=== PATIENT | female | born 1975 | race Caucasian/White ===

== ENCOUNTER 2018-03-18 00:09 | Emergency (ER) | payer MEDICAID ==
[~2018-03-18] VITALS: Ht 157.5 cm; Wt 60.0 kg
[~2018-03-18 00:09] MED LIST: ALBU8.5H8 IH; FOLI1TAB16 PO; HYDR-569 PO; PENT400T12 PO; PROP10TA10 PO; SPIR25TA PO; THI100T PO
[2018-03-18] MEDS ORDERED: bacitracin 15gm ointment TP ONE (02:00)
[2018-03-18] MEDS ORDERED: LIDOcaine 1.5% w/epinephrine 1:200,000 5ml ampul IJ ONE (02:00)
[2018-03-18 02:16] VITALS: BP 102/74
[2018-03-18] MEDS ORDERED: TRAM50TA2 PO (03:04)
== END 2018-03-18 03:19 | disposition home or self-care (01) ==
LOC: ER 00:09
DX: S01.01XA Laceration without foreign body of scalp, initial encounter (principal); F12.90 Cannabis use, unspecified, uncomplicated; F15.90 Other stimulant use, unspecified, uncomplicated; Z90.49 Acquired absence of other specified parts of digestive tract; Z88.6 Allergy status to analgesic agent; Z79.899 Other long term (current) drug therapy; W01.198A Fall on same level from slipping, tripping and stumbling with subsequent striking against other object, initial encounter; Y93.89 Activity, other specified; Y92.89 Other specified places as the place of occurrence of the external cause; Y99.8 Other external cause status
CPT/HCPCS: 12001; 70450; 99284; A6449; J3490

== ENCOUNTER 2018-06-18 21:23 | Emergency (ER) | payer MEDICAID ==
[~2018-06-18] VITALS: Ht 157.5 cm; Wt 67.0 kg
[2018-06-18] MEDS ORDERED: PROP20TA6 PO (21:56)
[2018-06-18] MEDS ORDERED: propranolol 10mg tablet PO STA (21:57)
[2018-06-18 22:25] VITALS: BP 122/85
== END 2018-06-18 22:26 | disposition home or self-care (01) ==
LOC: ER 21:23
DX: F41.9 Anxiety disorder, unspecified (principal); F32.9 Major depressive disorder, single episode, unspecified; Z86.19 Personal history of other infectious and parasitic diseases; Z90.49 Acquired absence of other specified parts of digestive tract; Z98.890 Other specified postprocedural states; F12.90 Cannabis use, unspecified, uncomplicated; F15.90 Other stimulant use, unspecified, uncomplicated; Z88.6 Allergy status to analgesic agent; Z88.8 Allergy status to other drugs, medicaments and biological substances; Z79.899 Other long term (current) drug therapy
CPT/HCPCS: 99284

== ENCOUNTER 2018-12-15 14:55 | Emergency (ER) | payer MEDICAID ==
[~2018-12-15] VITALS: Ht 157.5 cm; Wt 72.7 kg
[~2018-12-15 14:55] MED LIST changes: +HYDR-4383 PO; -HYDR-569 PO; +PROP20TA6 PO
[2018-12-15 15:03] VITALS: BP 123/88
[2018-12-15] MEDS ORDERED: PRED20TA PO (21:39)
== END 2018-12-15 15:29 | disposition left against medical advice (07) ==
LOC: ER 14:56
DX: M79.642 Pain in left hand (principal); M79.641 Pain in right hand; M54.9 Dorsalgia, unspecified; M79.605 Pain in left leg; M79.604 Pain in right leg; Z53.21 Procedure and treatment not carried out due to patient leaving prior to being seen by health care provider; Y08.89XA Assault by other specified means, initial encounter; Y93.89 Activity, other specified; Y92.89 Other specified places as the place of occurrence of the external cause; Y99.8 Other external cause status
CPT/HCPCS: 73130

== ENCOUNTER 2018-12-23 17:10 | Inpatient (IN) | payer MEDICAID ==
[~2018-12-23] VITALS: Ht 157.5 cm; Wt 74.4 kg
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
[2018-12-23 23:20] VITALS: BP 95/53
[2018-12-24] MEDS ORDERED: acetaminophen 325mg tablet PO PRN (00:05)
[2018-12-24] MEDS ORDERED: mag hydrox/Alum hydrox/simeth 30ml oral suspension PO PRN (00:15)
[2018-12-24] MEDS ORDERED: magnesium hydroxide 30ml (MOM) UD suspension PO PRN (00:15)
[2018-12-24 08:00] VITALS: BP 94/42
[2018-12-24 08:58] LABS: CHOL/HDL RATIO 2.6 (0.00-4.99); CHOLESTEROL 125 MG/DL (0-200); HDL CHOLESTEROL 48 MG/DL (35-60); LDL CHOLESTEROL 71 MG/DL (50-100); TRIGLYCERIDES 43 MG/DL (20-135)
[2018-12-24 09:03] LABS: HEMOGLOBIN A1C 5.3 % (4.5-6.2)
[2018-12-24] MEDS ORDERED: LORazepam 2 mg/ml vial IV PRN (09:50)
[2018-12-24] MEDS ORDERED: tuberculin, purif. prot. deriv. 5 units/0.1ml ID ONE (10:00)
[2018-12-24] MEDS: multivitamins, therapeutics tablet PO SCH (11:00)
[2018-12-24] MEDS: folic acid 1mg tablet PO SCH (11:00)
[2018-12-24] MEDS: thiamine 100mg tablet PO SCH (11:00)
[2018-12-24 11:13] LABS: BASOPHILS % (AUTO) 0.6 % (0-1); EOSINOPHILS # (AUTO) 0.1 X10'3 (0-0.9); EOSINOPHILS % (AUTO) 3.1 % (0-6); HEMATOCRIT 29.1 % (35.0-45.0); HEMOGLOBIN 8.8 g/dl (12.0-16.0); LYMPHOCYTES # (AUTO) 1.1 X10'3 (1.1-4.8); LYMPHOCYTES % (AUTO) 34.7 % (21-51); MEAN CORPUSCULAR HEMOGLOBIN 20.4 PG (27.0-31.0); MEAN CORPUSCULAR HGB CONC 30.4 g/dL (33.0-36.5); MEAN PLATELET VOLUME 8.6 FL (7.4-10.4); MONOCYTES # (AUTO) 0.3 X10'3 (0-0.9); NEUTROPHILS # (AUTO) 1.6 X10'3 (1.8-7.7); NEUTROPHILS % (AUTO) 51.6 % (42-75); PLATELET COUNT 214 X10'3 (140-440); RED BLOOD COUNT 4.35 X10'6 (4.20-5.60); RED CELL DISTRIBUTION WIDTH 20.9 % (11.5-14.5); WHITE BLOOD COUNT 3.1 X10'3 (4.5-11.0)
--- NOTE | 2018-12-24 11:20 | NUR ---
METHADONE DOSE VERIFICATION The patient attends [facility]. Methadone dose was verified today as 140mg qd. Her last dose prior to admission was 12/22/18 at [address] [facility] Goldberg was made aware and new order received and carried out.
[2018-12-24 12:17] LABS: ALANINE AMINOTRANSFERASE 39 U/L (12-78); ALBUMIN 2.8 G/DL (3.4-5.0); ALBUMIN/GLOBULIN RATIO 0.7 (1.1-1.5); ALKALINE PHOSPHATASE 238 IU/L (46-116); ANION GAP 7 (8-16); ASPARTATE AMINO TRANSFERASE 42 U/L (10-37); BILIRUBIN,TOTAL 0.2 MG/DL (0.1-1.0); BLOOD UREA NITROGEN 13 MG/DL (7-18); BUN/CREATININE RATIO 15.1 (6.6-38.0); CALCIUM 8.6 MG/DL (8.5-10.1); CHLORIDE 107 MMOL/L (99-107); CREATININE 0.86 MG/DL (0.40-0.90); GLUCOSE 95 MG/DL (70-104); POTASSIUM 4.4 MMOL/L (3.5-5.1); SODIUM 141 MMOL/L (135-145); TOTAL CARBON DIOXIDE 27.4 MMOL/L (24-32); TOTAL PROTEIN 6.9 G/DL (6.4-8.2); eGFR 72 ML/MIN
[2018-12-24 12:26] LABS: PLATELET ESTIMATE NORMAL
[2018-12-24 12:27] LABS: ANISOCYTOSIS 3+; HYPOCHROMASIA 2+; MICROCYTOSIS 2+; POLYCHROMASIA 2+; STOMATOCYTES 1+; TEAR DROP CELLS 1+
[2018-12-24 12:28] LABS: ETHANOL < 0.010 GM/DL (0.0-0.010)
[2018-12-24] MEDS ORDERED: METH5TAB2 PO (12:40)
[2018-12-24] MEDS ORDERED: METH-603 PO (12:45)
[2018-12-24] MEDS: methadone 10mg tablet PO SCH (12:55)
[2018-12-24 15:59] VITALS: BP 97/57
[2018-12-24] MEDS: ondansetron 4mg rapidly disintigrating tab PO PRN (17:41)
[2018-12-24] MEDS ORDERED: LORazepam 1 MG tablet PO PRN (17:50)
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
[2018-12-24 19:00] VITALS: BP 102/65
[2018-12-24] MEDS ORDERED: hydrOXYzine 25 MG tablet PO PRN (19:35)
[2018-12-24] MEDS: QUEtiapine 25mg tablet PO SCH (20:37)
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
--- NOTE | 2018-12-25 04:37 | NUR ---
Pt had tremors w/outstretched arms, moderate headache and sweating, and some anxiety, she was provided w/Ativan 2mg. She attempted to watch tv but fell asleep in rec room, was assisted back to bed. She is currently sleeping, rr even and unlabored, no s/s distress. Addendum: 12/25/18 at 0440 by Brigitte Ely RN Amended: Links added.
[2018-12-25] MEDS: ondansetron 4mg rapidly disintigrating tab PO PRN (04:56)
[2018-12-25] MEDS: acetaminophen 325mg tablet PO PRN ×2 (04:57→17:14)
[2018-12-25 05:01] VITALS: BP 119/47
[2018-12-25] MEDS ORDERED: LORazepam 1 MG tablet PO ONE (05:30)
[2018-12-25 08:32] LABS: MAGNESIUM 2.1 MG/DL (1.5-2.4); PHOSPHORUS 4.2 MG/DL (2.3-4.5)
[2018-12-25 08:36] LABS: INR 1.1 INR; PROTHROMBIN TIME 10.7 SECONDS (9.0-12.0)
[2018-12-25 08:52] VITALS: BP 98/62
[2018-12-25] MEDS: folic acid 1mg tablet PO SCH (08:55)
[2018-12-25] MEDS: methadone 10mg tablet PO SCH (08:55)
[2018-12-25] MEDS: multivitamins, therapeutics tablet PO SCH (08:55)
[2018-12-25] MEDS: thiamine 100mg tablet PO SCH (08:55)
--- NOTE | 2018-12-25 12:47 | NUR ---
Nutrition consult: Pt admit w/ depression w/ hx tahmina-en-y, etoh, and pernicious anemia. MCV 67 on admit surprisingly low given hx. RD d/w RN for B12 and Fe labs per MD approval. Pt receiving thiamin/folic/MVI for etoh hx meeting vitamin needs. PO 100% mechanical soft diet meeting needs. If B12 returns normal may benefit from MMA lab for further specificity given GI hx. LBM 12/24. Will continue to monitor. Rec: 1. continue mechanical soft diet 2. thiamin/folic/MVI for etoh; following protocol MVM for tahmina-en-y hx 3. monitor for further Fe/B12 needs given labs per MD approval 4. wt per rx Addendum: 12/25/18 at [address] Amended: Links added.
--- NOTE | 2018-12-25 17:50 | NUR ---
Nursing Progress Note Legal hold: 5150 Client on involuntary status for DTS. Received report from Neda JULES Why are they here: Pt reporting thoughts of overdosing on heroin if she went home or was left home. Reported increase in depression and suicidal thoughts, overwhelmed with guilt, hopelessness "things will not change." Drinking more to cope Assessment What happened this shift: Received patient lying in bed. Patient was sedated and difficult to fully aroused. Patient did get up for breakfast and received her medications. Patient agreeable to sitting up in the room and remaining on the unit after breakfast. Patient remains on CIWA every two hours in the morning but was decreased to every four hours because of low scores. Patient did seek meds toward the middle of the day complaining of more anxiety and wanting Ativan. PA questioned whether he wanted her to have some and he gave order to discontinue all Ativan and offer atarax which patient refused. Patient upset initially, but eventually went to her room and lay down taking a nap until dinner. No further complaints. Patient did not endorse depression and denies suicidal thoughts today. S/I, H/I: denies s/i A/VH: denies Sleep: cat naps through out the day. ADL's: Independent Group attendance: attended groups Were meds taken: yes Any med S/E: N/A Mental Status Exam Appearance: unkempt, wearing heavy jacket and pajamas. Eye contact: Direct Behavior: Cooperative and friendly, laughing Speech: Clear, soft tone, normal rate/rhythm Mood: reports anxiety and agitation, none observed Affect: constricted Thought process: linear Thought Content: talking about her relationship w/her daughter Cognition: A/O x4 Insight: Fair Judgment: Fair Interventions PRN's used: Therapeutic interventions: 1:1 therapeutic assessment, active listening that included positive feedback, medication education, and monitoring, maintained safe therapeutic milieu, encouraged to attend groups, Q 15 min safety checks. Restraints/seclusion/emergency medication: N/A Justification of Continued Inpatient Treatment: Continued therapeutic support and medication management needed to provide stabilization, prevent decompensation while decreasing risk to patient.
[2018-12-25 20:00] VITALS: BP 113/55
[2018-12-25] MEDS: QUEtiapine 25mg tablet PO SCH (20:53)
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
[2018-12-26] MEDS: ondansetron 4mg rapidly disintigrating tab PO PRN (07:21)
[2018-12-26] MEDS: methadone 10mg tablet PO SCH (07:22)
[2018-12-26] MEDS: thiamine 100mg tablet PO SCH (07:27)
[2018-12-26] MEDS: folic acid 1mg tablet PO SCH (07:27)
[2018-12-26] MEDS: multivitamins, therapeutics tablet PO SCH (07:27)
[2018-12-26 07:52] LABS: MAGNESIUM 2.1 MG/DL (1.5-2.4); PHOSPHORUS 4.1 MG/DL (2.3-4.5)
[2018-12-26 07:56] LABS: PROTHROMBIN TIME 10.5 SECONDS (9.0-12.0)
[2018-12-26 08:00] VITALS: BP 100/64
[2018-12-26] MEDS ORDERED: LORazepam 1 MG tablet PO PRN (09:50)
[2018-12-26] MEDS ORDERED: LORazepam 2 mg/ml vial IV PRN (09:50)
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
[2018-12-26 20:00] VITALS: BP 100/52
[2018-12-26] MEDS: QUEtiapine 25mg tablet PO SCH (20:46)
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
[2018-12-27] MEDS: methadone 10mg tablet PO SCH (07:12)
[2018-12-27] MEDS: thiamine 100mg tablet PO SCH (07:17)
[2018-12-27] MEDS: folic acid 1mg tablet PO SCH (07:18)
[2018-12-27] MEDS: multivitamins, therapeutics tablet PO SCH (07:19)
[2018-12-27 07:58] LABS: PHOSPHORUS 4.3 MG/DL (2.3-4.5)
[2018-12-27 08:00] VITALS: BP 94/56
[2018-12-27 08:16] LABS: PROTHROMBIN TIME 10.4 SECONDS (9.0-12.0)
[2018-12-27] MEDS ORDERED: LORazepam 0.5 MG tablet PO PRN (10:25)
[2018-12-27] MEDS: busPIRone 5mg tablet PO SCH ×2 (12:53→13:00)
[2018-12-27] MEDS ORDERED: gabapentin 100mg capsule PO SCH (13:00)
[2018-12-27] MEDS ORDERED: NO HOME MEDS (16:24)
[2018-12-27] MEDS ORDERED: thiamine tablet PO (16:28)
[2018-12-27] MEDS ORDERED: FOLI1TAB16 PO (16:28)
[2018-12-27] MEDS ORDERED: MULT-1179 PO (16:28)
--- NOTE | 2018-12-27 17:35 | NUR ---
Nursing Discharge Note Patient is accompanied off the unit by Charge Nurse Neda. She is picked up by her SO and transported to her friends home at [address] [place] [address]. All valuables were with patient. Discharge instructions were provided to patient and she will make her own appointments. Handout with instructions given to patient. Her affect is bright and she appears happy to be leaving. Patient denies S/I this morning during assessment and no suicidal statements were made throughout the day. Patient has improved since admit but states she will drink when she gets off the unit. Coping skills are gone over with patient and numbers/places to access for help are provided. No acute physical or emotional distress observed. Nicotine replacement is not offered as it is N/A.
[2018-12-28] MEDS ORDERED: LORazepam 1 MG tablet PO PRN (09:50)
[2018-12-28] MEDS ORDERED: LORazepam 2 mg/ml vial IV PRN (09:50)
== END 2018-12-27 17:00 | disposition home or self-care (01) | DRG 754 ==
LOC: ADULT MH 17:10
PROVIDERS: ADMIT Psychiatry & Neurology Psychiatry; ATTEND Psychiatry & Neurology Psychiatry
DX: F32.9 Major depressive disorder, single episode, unspecified (principal); F11.20 Opioid dependence, uncomplicated; I95.9 Hypotension, unspecified; F17.210 Nicotine dependence, cigarettes, uncomplicated; B19.20 Unspecified viral hepatitis C without hepatic coma; F10.10 Alcohol abuse, uncomplicated; D64.9 Anemia, unspecified; F41.9 Anxiety disorder, unspecified; Z82.3 Family history of stroke; Z59.0 Homelessness; Z86.61 Personal history of infections of the central nervous system; Z87.440 Personal history of urinary (tract) infections; Z98.84 Bariatric surgery status; Z80.1 Family history of malignant neoplasm of trachea, bronchus and lung; Z88.6 Allergy status to analgesic agent; Z88.8 Allergy status to other drugs, medicaments and biological substances; Z90.49 Acquired absence of other specified parts of digestive tract
CPT/HCPCS: 36415; 80053; 80061; 80320; 82607; 83036; 83540; 83735; 84100; 85025; 85610; 87070

== ENCOUNTER 2019-09-22 14:09 | Emergency (ER) | payer MEDICAID ==
[~2019-09-22] VITALS: Ht 157.5 cm; Wt 81.9 kg
[~2019-09-22 14:09] MED LIST changes: -ALBU8.5H8 IH; -HYDR-4383 PO; +METH-603 PO; +MULT-1179 PO; -PENT400T12 PO; -PROP10TA10 PO; -PROP20TA6 PO; -SPIR25TA PO; -THI100T PO; +thiamine tablet PO
[2019-09-22 15:38] LABS: URINE AMPHETAMINE SCREEN POSITIVE (Neg); URINE BARBITUATE SCREEN NEGATIVE (Neg); URINE BENZODIAZEPINES SCREEN NEGATIVE (Neg); URINE CANNABINOID SCREEN NEGATIVE (Neg); URINE COCAINE SCREEN NEGATIVE (Neg); URINE METHADONE SCREEN POSITIVE (Neg); URINE OPIATE SCREEN POSITIVE (Neg); URINE PHENCYCLIDINE SCREEN NEGATIVE (Neg)
[2019-09-22 15:42] LABS: BASOPHILS # (AUTO) 0.1 X10'3 (0-0.2); BASOPHILS % (AUTO) 1.2 % (0-1); EOSINOPHILS % (AUTO) 0.3 % (0-6); HEMATOCRIT 32.5 % (35.0-45.0); HEMOGLOBIN 10.1 g/dl (12.0-16.0); LYMPHOCYTES # (AUTO) 1.2 X10'3 (1.1-4.8); LYMPHOCYTES % (AUTO) 19.8 % (21-51); MEAN CORPUSCULAR HEMOGLOBIN 22.3 PG (27.0-31.0); MEAN CORPUSCULAR HGB CONC 31.1 g/dL (33.0-36.5); MEAN CORPUSCULAR VOLUME 71.7 FL (78-98); MEAN PLATELET VOLUME 6.7 FL (7.4-10.4); MONOCYTES # (AUTO) 0.4 X10'3 (0-0.9); MONOCYTES % (AUTO) 5.8 % (2-12); NEUTROPHILS # (AUTO) 4.6 X10'3 (1.8-7.7); NEUTROPHILS % (AUTO) 72.9 % (42-75); PLATELET COUNT 253 X10'3 (140-440); RED BLOOD COUNT 4.53 X10'6 (4.20-5.60); RED CELL DISTRIBUTION WIDTH 22.9 % (11.5-14.5); WHITE BLOOD COUNT 6.3 X10'3 (4.5-11.0)
[2019-09-22 15:57] LABS: ALANINE AMINOTRANSFERASE 109 U/L (12-78); ALBUMIN 2.9 G/DL (3.4-5.0); ALBUMIN/GLOBULIN RATIO 0.6 (1.1-1.5); ALKALINE PHOSPHATASE 458 IU/L (46-116); ANION GAP 9 (8-16); ASPARTATE AMINO TRANSFERASE 212 U/L (10-37); BILIRUBIN,TOTAL 0.3 MG/DL (0.1-1.0); BLOOD UREA NITROGEN 4 MG/DL (7-18); BUN/CREATININE RATIO 5.3 (6.6-38.0); CALCIUM 8.4 MG/DL (8.5-10.1); CHLORIDE 105 MMOL/L (99-107); CREATININE 0.75 MG/DL (0.40-0.90); ETHANOL 0.142 GM/DL (0.0-0.010); GLUCOSE 81 MG/DL (70-104); POTASSIUM 3.6 MMOL/L (3.5-5.1); SODIUM 140 MMOL/L (135-145); TOTAL PROTEIN 7.6 G/DL (6.4-8.2); eGFR 84 ML/MIN
[2019-09-22 16:07] LABS: URINE HCG NEGATIVE (NEG)
[2019-09-22 16:28] LABS: ANISOCYTOSIS 3+; HYPOCHROMASIA 1+; MICROCYTOSIS 1+; PLATELET ESTIMATE NORMAL; POIKILOCYTOSIS 1+; POLYCHROMASIA 1+
[2019-09-22] MEDS ORDERED: LORazepam 1 MG tablet PO ONE ×2 (16:35→22:30)
--- NOTE | 2019-09-22 19:00 | NUR ---
Assumed care of patient, pt. sitting up talking with [facility] at this time, she appears calm and cooperative, rr even and ulabored.
--- NOTE | 2019-09-22 20:00 | NUR ---
Med Reconcilication: Attempted to complete Med Rec, however unable to do so per pt. reports the only medicatoin she currently takes is Methadone and she is unaware of the current dose. Pt. reports that she is currently being treated at [facility], and her dose of Methadone is being tapered daily. She states that staff should be able to call the clinic to obtain her current dosing orders, will endorse to AM shift. Pt. dose report that her last dose of Methadone was today, 30mg.
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
--- NOTE | 2019-09-22 21:30 | NUR ---
Pt. c/o possible withdrawal s/s AEB sweating, nausea, and she exhibits slight bilateral upper extremity fine tremors. Obtained order from Dr. Jones for 2mg of Ativan, will continue to monitor. Also reported to Dr. Jones reddened abraisions with some enduration present on pt's bilateral lower extremities. MD advises this credit underwriter to, "Have AM shift doctor follow-up." Will endorse to AM shift. Abraisions cleaned with N/S and applied ABT ointment per MD orders. Pictures obtained and placed in pt's chart.
--- NOTE | 2019-09-22 23:00 | NUR ---
Pt. sleeping at this time, rr even and unlabored, no s/s of distress.
--- NOTE | 2019-09-23 01:05 | NUR ---
Pt. is asleep at this time, laying on her back with HOB elevated, rr even and ulabored.
--- NOTE | 2019-09-23 03:30 | NUR ---
Pt. continues to sleep, laying on her left side at this time, appears to be resting comfortably.
[2019-09-23 05:20] VITALS: BP 107/66
--- NOTE | 2019-09-23 05:24 | NUR ---
Pt. sleeping at this time, laying on back, rr even and unlabored.
[2019-09-23] MEDS ORDERED: chlordiazePOXIDE 25mg capsule PO ONE (06:10)
--- NOTE | 2019-09-23 06:13 | NUR ---
Pt. reporting s/s of withdrawal AEB sweating, nausea, and fine tremors. Obtained order from Dr. Marino for Librium, will continue to monitor.
--- NOTE | 2019-09-23 06:47 | NUR ---
PtEly García, states, "It makes me sick," endorsed to HAILEE allison RN Addendum: 09/23/19 at 0654 by ALFREDITO Medicationed returned to pharmacy
[2019-09-23] MEDS ORDERED: methadone 10mg tablet PO ONE (08:15)
[2019-09-23] MEDS ORDERED: ondansetron 4mg rapidly disintigrating tab PO ONE (08:20)
--- NOTE | 2019-09-23 09:13 | NUR ---
SITTING UP IN BED WITHOUT COMPLAINTS AT THIS TIME. STATES NAUSEA SUBSIDING NOW AND WAS ABLE TO TOLERATE BREAKFAST.
--- NOTE | 2019-09-23 10:30 | NUR ---
DOZING IN BED. CALM WITHOUT COMPLAINTS AT THIS TIME. NO DISTRESS NOTED.
--- NOTE | 2019-09-23 11:30 | NUR ---
DOZING IN BED. APPEARS CALM AND COMFORTABLE AT PRESENT. VISIBLE FROM NURSES STATION.
--- NOTE | 2019-09-23 13:30 | NUR ---
TOLERATED LUNCH MEAL WELL AND RETAINED. RESTING IN BED WITHOUT COMPLAINTS.
[2019-09-23] MEDS ORDERED: NO HOME MEDS (17:11)
== END 2019-09-23 15:41 ==
LOC: ER 14:10
DX: F32.9 Major depressive disorder, single episode, unspecified (principal); R74.0 Nonspecific elevation of levels of transaminase and lactic acid dehydrogenase [LDH]; F41.9 Anxiety disorder, unspecified; F10.10 Alcohol abuse, uncomplicated; F12.90 Cannabis use, unspecified, uncomplicated; F15.90 Other stimulant use, unspecified, uncomplicated; F17.200 Nicotine dependence, unspecified, uncomplicated; Z86.2 Personal history of diseases of the blood and blood-forming organs and certain disorders involving the immune mechanism; Z86.19 Personal history of other infectious and parasitic diseases; Z90.49 Acquired absence of other specified parts of digestive tract; Z98.51 Tubal ligation status; Z98.890 Other specified postprocedural states; Z88.8 Allergy status to other drugs, medicaments and biological substances; Z79.899 Other long term (current) drug therapy; Y90.9 Presence of alcohol in blood, level not specified
CPT/HCPCS: 36415; 80053; 80305; 80320; 81025; 84443; 85025; 99285

== ENCOUNTER 2019-10-13 15:16 | Emergency (ER) | payer MEDICAID ==
[~2019-10-13] VITALS: Ht 157.5 cm; Wt 70.0 kg
[~2019-10-13 15:16] MED LIST changes: +DOL10T PO; -FOLI1TAB16 PO; +GABA-534 PO; -METH-603 PO; -MULT-1179 PO; +NYSPWD TP; +QUET25TA34 PO; +VENL75CA61 PO; -thiamine tablet PO
[2019-10-13 15:24] VITALS: BP_DIAS 60
[2019-10-13] MEDS ORDERED: LORazepam 1 MG tablet PO ONE (17:30)
[2019-10-13] MEDS ORDERED: LORA-269 PO (17:54)
[2019-10-13 17:57] VITALS: BP_SYST 20
== END 2019-10-13 17:59 | disposition home or self-care (01) ==
LOC: ER 15:17
DX: F41.9 Anxiety disorder, unspecified (principal); Z76.0 Encounter for issue of repeat prescription; F32.9 Major depressive disorder, single episode, unspecified; F12.90 Cannabis use, unspecified, uncomplicated; F15.90 Other stimulant use, unspecified, uncomplicated; Z90.49 Acquired absence of other specified parts of digestive tract; Z98.890 Other specified postprocedural states; Z98.84 Bariatric surgery status; Z88.6 Allergy status to analgesic agent; Z88.8 Allergy status to other drugs, medicaments and biological substances; Z79.899 Other long term (current) drug therapy
CPT/HCPCS: 99283

== ENCOUNTER 2019-10-21 20:12 | Emergency (ER) | payer MEDICAID ==
[~2019-10-21] VITALS: Ht 157.5 cm; Wt 80.0 kg
[~2019-10-21 20:12] MED LIST changes: +LORA-269 PO
[2019-10-21 21:25] LABS: ALANINE AMINOTRANSFERASE 38 U/L (12-78); ALBUMIN 3.4 G/DL (3.4-5.0); ALBUMIN/GLOBULIN RATIO 0.8 (1.1-1.5); ALKALINE PHOSPHATASE 283 IU/L (46-116); ANION GAP 8 (8-16); ASPARTATE AMINO TRANSFERASE 45 U/L (10-37); BILIRUBIN,TOTAL 0.3 MG/DL (0.1-1.0); BLOOD UREA NITROGEN 6 MG/DL (7-18); BUN/CREATININE RATIO 7.9 (6.6-38.0); CALCIUM 8.8 MG/DL (8.5-10.1); CHLORIDE 105 MMOL/L (99-107); CREATININE 0.76 MG/DL (0.40-0.90); ETHANOL < 0.010 GM/DL (0.0-0.010); GLUCOSE 110 MG/DL (70-104); POTASSIUM 4.1 MMOL/L (3.5-5.1); SODIUM 141 MMOL/L (135-145); TOTAL PROTEIN 7.5 G/DL (6.4-8.2); eGFR 83 ML/MIN
[2019-10-21 21:31] LABS: BASOPHILS % (AUTO) 0.5 % (0-1); EOSINOPHILS # (AUTO) 0.1 X10'3 (0-0.9); EOSINOPHILS % (AUTO) 2.8 % (0-6); HEMATOCRIT 31.5 % (35.0-45.0); HEMOGLOBIN 9.6 g/dl (12.0-16.0); LYMPHOCYTES # (AUTO) 1.3 X10'3 (1.1-4.8); LYMPHOCYTES % (AUTO) 24.2 % (21-51); MEAN CORPUSCULAR HEMOGLOBIN 21.1 PG (27.0-31.0); MEAN CORPUSCULAR HGB CONC 30.5 g/dL (33.0-36.5); MEAN CORPUSCULAR VOLUME 69.1 FL (78-98); MEAN PLATELET VOLUME 7.3 FL (7.4-10.4); MONOCYTES # (AUTO) 0.4 X10'3 (0-0.9); MONOCYTES % (AUTO) 7.6 % (2-12); NEUTROPHILS # (AUTO) 3.4 X10'3 (1.8-7.7); NEUTROPHILS % (AUTO) 64.9 % (42-75); PLATELET COUNT 291 X10'3 (140-440); RED BLOOD COUNT 4.55 X10'6 (4.20-5.60); RED CELL DISTRIBUTION WIDTH 21.3 % (11.5-14.5); WHITE BLOOD COUNT 5.2 X10'3 (4.5-11.0)
[2019-10-21] MEDS ORDERED: LORazepam 0.5 MG tablet PO PRN (21:35)
[2019-10-21] MEDS ORDERED: ondansetron 4mg rapidly disintigrating tab PO ONE (21:35)
[2019-10-21] MEDS ORDERED: LORA-269 PO (21:37)
[2019-10-21 21:53] VITALS: BP 123/81
[2019-10-22 00:28] LABS: ANISOCYTOSIS 3+; HYPOCHROMASIA 1+; MICROCYTOSIS 2+; PLATELET ESTIMATE NORMAL
== END 2019-10-21 21:56 | disposition home or self-care (01) ==
LOC: ER 20:12
DX: F41.9 Anxiety disorder, unspecified (principal); F32.9 Major depressive disorder, single episode, unspecified; F12.90 Cannabis use, unspecified, uncomplicated; F15.90 Other stimulant use, unspecified, uncomplicated; Z90.49 Acquired absence of other specified parts of digestive tract; Z98.84 Bariatric surgery status; Z88.6 Allergy status to analgesic agent; Z88.8 Allergy status to other drugs, medicaments and biological substances; Z79.899 Other long term (current) drug therapy
CPT/HCPCS: 36415; 80053; 80320; 85025; 99284

== ENCOUNTER 2020-01-30 23:46 | Emergency (ER) | payer MEDICAID ==
[~2020-01-30] VITALS: Ht 157.5 cm; Wt 81.8 kg
[~2020-01-30 23:46] MED LIST changes: -NYSPWD TP
[2020-01-31] MEDS ORDERED: ondansetron/PF 4mg/2ml inj IV ONE
[2020-01-31] MEDS ORDERED: normal saline 1000ML IV soln IVB ONE
[2020-01-31] MEDS ORDERED: LORazepam 2 mg/ml vial IV ONE (00:05)
[2020-01-31 00:38] LABS: CLARITY,URINE CLEAR (Clear); COLOR,URINE STRAW (Yellow); GLUCOSE, URINE NEGATIVE (Neg); KETONES,URINE NEGATIVE (Neg); LEUKOCYTE ESTERASE ,URINE TRACE (Neg); NITRITES, URINE NEGATIVE (Neg); OCCULT BLOOD,URINE TRACE-INTACT (Neg); PH,URINE 6.5 (4.8-8.0); PROTEIN,URINE NEGATIVE (Neg); UROBILINOGEN,URINE 0.2 E.U/dL (0.2-1.0)
[2020-01-31 00:39] LABS: URINE HCG NEGATIVE (NEG)
[2020-01-31 00:44] LABS: URINE AMPHETAMINE SCREEN NEGATIVE (Neg); URINE BARBITUATE SCREEN NEGATIVE (Neg); URINE BENZODIAZEPINES SCREEN NEGATIVE (Neg); URINE CANNABINOID SCREEN POSITIVE (Neg); URINE COCAINE SCREEN NEGATIVE (Neg); URINE METHADONE SCREEN POSITIVE (Neg); URINE OPIATE SCREEN NEGATIVE (Neg); URINE PHENCYCLIDINE SCREEN NEGATIVE (Neg)
[2020-01-31 00:47] LABS: UA COLLECTION TYPE CLN CATCH MIDSTREAM
[2020-01-31 00:49] LABS: BACTERIA,URINE 1+ /HPF (Neg); RBC,URINE NONE SEEN /HPF (0-2); SQUAMOUS EPITHELIAL CELL,UR FEW /LPF (FEW); WBC,URINE NONE SEEN /HPF (0-4)
[2020-01-31 01:34] LABS: BASOPHILS % (AUTO) 0.5 % (0-1); HEMATOCRIT 30.6 % (35.0-45.0); HEMOGLOBIN 9.3 g/dl (12.0-16.0); LYMPHOCYTES # (AUTO) 0.9 X10'3 (1.1-4.8); LYMPHOCYTES % (AUTO) 21.7 % (21-51); MEAN CORPUSCULAR HEMOGLOBIN 21.6 PG (27.0-31.0); MEAN CORPUSCULAR HGB CONC 30.4 g/dL (33.0-36.5); MEAN PLATELET VOLUME 8.3 FL (7.4-10.4); MONOCYTES # (AUTO) 0.6 X10'3 (0-0.9); MONOCYTES % (AUTO) 12.7 % (2-12); NEUTROPHILS # (AUTO) 2.8 X10'3 (1.8-7.7); NEUTROPHILS % (AUTO) 64.1 % (42-75); PLATELET COUNT 199 X10'3 (140-440); RED BLOOD COUNT 4.32 X10'6 (4.20-5.60); RED CELL DISTRIBUTION WIDTH 23.2 % (11.5-14.5); WHITE BLOOD COUNT 4.4 X10'3 (4.5-11.0)
[2020-01-31 01:37] LABS: ALANINE AMINOTRANSFERASE 48 U/L (12-78); ALBUMIN/GLOBULIN RATIO 0.8 (1.1-1.5); ALKALINE PHOSPHATASE 303 IU/L (46-116); ANION GAP 10 (8-16); ASPARTATE AMINO TRANSFERASE 74 U/L (10-37); BILIRUBIN,TOTAL 0.4 MG/DL (0.1-1.0); BLOOD UREA NITROGEN 5 MG/DL (7-18); BUN/CREATININE RATIO 6.6 (6.6-38.0); CALCIUM 8.1 MG/DL (8.5-10.1); CHLORIDE 106 MMOL/L (99-107); CREATININE 0.76 MG/DL (0.40-0.90); ETHANOL 0.018 GM/DL (0.0-0.010); GLUCOSE 80 MG/DL (70-104); LIPASE 138 U/L (73-393); SODIUM 141 MMOL/L (135-145); TOTAL CARBON DIOXIDE 24.6 MMOL/L (24-32); eGFR 83 ML/MIN
[2020-01-31 01:43] LABS: POTASSIUM 2.8 MMOL/L (3.5-5.1)
[2020-01-31] MEDS ORDERED: potassium Cl 20 mEq SR tablet PO STA (01:43)
[2020-01-31] MEDS ORDERED: ONDA4TAB12 PO (01:48)
[2020-01-31 02:08] VITALS: BP 119/68
[2020-01-31 03:42] LABS: ANISOCYTOSIS 3+; MICROCYTOSIS 2+; PLATELET ESTIMATE NORMAL
== END 2020-01-31 02:09 | disposition home or self-care (01) ==
LOC: ER 23:47
DX: R11.2 Nausea with vomiting, unspecified (principal); E86.0 Dehydration; E87.6 Hypokalemia; K29.20 Alcoholic gastritis without bleeding; F10.10 Alcohol abuse, uncomplicated; F41.9 Anxiety disorder, unspecified; F32.9 Major depressive disorder, single episode, unspecified; F17.200 Nicotine dependence, unspecified, uncomplicated; Z90.49 Acquired absence of other specified parts of digestive tract; Z98.0 Intestinal bypass and anastomosis status; Z98.890 Other specified postprocedural states; Z88.6 Allergy status to analgesic agent; Z88.8 Allergy status to other drugs, medicaments and biological substances; Z79.899 Other long term (current) drug therapy; Y90.0 Blood alcohol level of less than 20 mg/100 ml
CPT/HCPCS: 36415; 80053; 80305; 80320; 81001; 81025; 83690; 85025; 87088; 96361; 96374; 96375; 99284; J2060; J2405; J7030; 87077; 87186

== ENCOUNTER 2020-05-03 12:43 | Emergency (ER) | payer MEDICAID ==
[~2020-05-03] VITALS: Ht 157.5 cm; Wt 83.2 kg
[~2020-05-03 12:43] MED LIST changes: +ONDA4TAB12 PO
[2020-05-03 13:28] LABS: CLARITY,URINE SLIGHTLY CLOUDY (Clear); COLOR,URINE YELLOW (Yellow); GLUCOSE, URINE NEGATIVE (Neg); KETONES,URINE NEGATIVE (Neg); LEUKOCYTE ESTERASE ,URINE SMALL (Neg); NITRITES, URINE NEGATIVE (Neg); OCCULT BLOOD,URINE NEGATIVE (Neg); PROTEIN,URINE NEGATIVE (Neg)
[2020-05-03 13:29] LABS: UA COLLECTION TYPE CLN CATCH MIDSTREAM
[2020-05-03 13:36] LABS: BACTERIA,URINE FEW /HPF (Neg); MUCUS STRANDS MODERATE /LPF (Neg); RBC,URINE NONE SEEN /HPF (0-2); SQUAMOUS EPITHELIAL CELL,UR MODERATE /LPF (FEW); WBC,URINE 0-4 /HPF (0-4)
[2020-05-03 13:53] LABS: BASOPHILS % (AUTO) 0.8 % (0-1); EOSINOPHILS # (AUTO) 0.2 X10'3 (0-0.9); EOSINOPHILS % (AUTO) 3.7 % (0-6); HEMATOCRIT 30.7 % (35.0-45.0); HEMOGLOBIN 9.2 g/dl (12.0-16.0); LYMPHOCYTES # (AUTO) 1.1 X10'3 (1.1-4.8); LYMPHOCYTES % (AUTO) 20.3 % (21-51); MEAN CORPUSCULAR HEMOGLOBIN 21.1 PG (27.0-31.0); MEAN CORPUSCULAR VOLUME 70.3 FL (78-98); MEAN PLATELET VOLUME 6.6 FL (7.4-10.4); MONOCYTES # (AUTO) 0.4 X10'3 (0-0.9); MONOCYTES % (AUTO) 7.7 % (2-12); NEUTROPHILS # (AUTO) 3.6 X10'3 (1.8-7.7); NEUTROPHILS % (AUTO) 67.5 % (42-75); PLATELET COUNT 247 X10'3 (140-440); RED BLOOD COUNT 4.37 X10'6 (4.20-5.60); RED CELL DISTRIBUTION WIDTH 22.8 % (11.5-14.5); WHITE BLOOD COUNT 5.4 X10'3 (4.5-11.0)
[2020-05-03 14:08] LABS: ALANINE AMINOTRANSFERASE 48 U/L (12-78); ALBUMIN 3.1 G/DL (3.4-5.0); ALBUMIN/GLOBULIN RATIO 0.7 (1.1-1.5); ALKALINE PHOSPHATASE 274 IU/L (46-116); ANION GAP 7 (8-16); ASPARTATE AMINO TRANSFERASE 97 U/L (10-37); BILIRUBIN,TOTAL 0.3 MG/DL (0.1-1.0); BLOOD UREA NITROGEN 7 MG/DL (7-18); BUN/CREATININE RATIO 8.9 (6.6-38.0); CALCIUM 8.5 MG/DL (8.5-10.1); CHLORIDE 104 MMOL/L (99-107); CREATININE 0.79 MG/DL (0.40-0.90); GLUCOSE 62 MG/DL (70-104); POTASSIUM 3.9 MMOL/L (3.5-5.1); SODIUM 136 MMOL/L (135-145); TOTAL CARBON DIOXIDE 25.2 MMOL/L (24-32); TOTAL PROTEIN 7.3 G/DL (6.4-8.2); eGFR 79 ML/MIN
[2020-05-03 14:18] LABS: PLATELET ESTIMATE NORMAL
[2020-05-03 14:19] LABS: ANISOCYTOSIS 3+; HYPOCHROMASIA 1+; MICROCYTOSIS 1+; POLYCHROMASIA 1+; TEAR DROP CELLS 1+
[2020-05-03] MEDS ORDERED: PROC-8 PO (14:40)
[2020-05-03] MEDS ORDERED: CEPH-572 PO (14:40)
[2020-05-03 14:54] VITALS: BP 101/61
== END 2020-05-03 14:57 | disposition home or self-care (01) ==
LOC: ER 12:43
DX: N10 Acute pyelonephritis (principal); M54.5 Low back pain; R11.10 Vomiting, unspecified; F10.10 Alcohol abuse, uncomplicated; F41.9 Anxiety disorder, unspecified; F32.9 Major depressive disorder, single episode, unspecified; Z86.2 Personal history of diseases of the blood and blood-forming organs and certain disorders involving the immune mechanism; Z86.19 Personal history of other infectious and parasitic diseases; Z90.49 Acquired absence of other specified parts of digestive tract; Z79.899 Other long term (current) drug therapy
CPT/HCPCS: 36415; 80053; 81001; 85025; 87088; 99283

== ENCOUNTER 2021-02-21 18:39 | Emergency (ER) | payer MEDICAID ==
[~2021-02-21] VITALS: Ht 157.5 cm; Wt 86.4 kg
[~2021-02-21 18:39] MED LIST changes: +CEPH-572 PO; +PROC-8 PO
[2021-02-21 20:15] LABS: BASOPHILS % (AUTO) 1.1 % (0-1); EOSINOPHILS # (AUTO) 0.4 X10'3 (0-0.9); EOSINOPHILS % (AUTO) 10.5 % (0-6); HEMATOCRIT 31.9 % (35.0-45.0); HEMOGLOBIN 9.8 g/dl (12.0-16.0); LYMPHOCYTES # (AUTO) 1.3 X10'3 (1.1-4.8); LYMPHOCYTES % (AUTO) 33.7 % (21-51); MEAN CORPUSCULAR HEMOGLOBIN 23.5 PG (27.0-31.0); MEAN CORPUSCULAR HGB CONC 30.7 g/dL (33.0-36.5); MEAN CORPUSCULAR VOLUME 76.6 FL (78-98); MONOCYTES # (AUTO) 0.4 X10'3 (0-0.9); MONOCYTES % (AUTO) 10.3 % (2-12); NEUTROPHILS # (AUTO) 1.8 X10'3 (1.8-7.7); NEUTROPHILS % (AUTO) 44.4 % (42-75); PLATELET COUNT 263 X10'3 (140-440); RED BLOOD COUNT 4.16 X10'6 (4.20-5.60); RED CELL DISTRIBUTION WIDTH 22.6 % (11.5-14.5)
[2021-02-21] MEDS ORDERED: methylPREDNISolone sod succ 125mg/2ml vial IV ONE ×2 (20:35→20:55)
[2021-02-21] MEDS ORDERED: albuterol 2.5 MG/3 ML nebule NEB ONE (20:35)
[2021-02-21] MEDS ORDERED: triamcinolone acetonide 40mg/ml inj IM ONE (20:40)
[2021-02-21 20:42] LABS: ALANINE AMINOTRANSFERASE 151 U/L (12-78); ALBUMIN 2.9 G/DL (3.4-5.0); ALBUMIN/GLOBULIN RATIO 0.6 (1.1-1.5); ALKALINE PHOSPHATASE 431 IU/L (46-116); ANION GAP 7 (8-16); ASPARTATE AMINO TRANSFERASE 559 U/L (10-37); BILIRUBIN,TOTAL 0.6 MG/DL (0.1-1.0); BLOOD UREA NITROGEN 3 MG/DL (7-18); BUN/CREATININE RATIO 4.2 (6.6-38.0); CHLORIDE 105 MMOL/L (99-107); CREATININE 0.71 MG/DL (0.40-0.90); GLUCOSE 83 MG/DL (70-104); POTASSIUM 3.7 MMOL/L (3.5-5.1); SODIUM 142 MMOL/L (135-145); TOTAL PROTEIN 7.4 G/DL (6.4-8.2); eGFR 89 ML/MIN
[2021-02-21] MEDS ORDERED: LORazepam 2 mg/ml vial IV ONE (21:20)
[2021-02-21] MEDS ORDERED: PRED10TA23 PO (21:44)
[2021-02-21] MEDS ORDERED: ALBU8.5H8 INH (21:44)
[2021-02-21 21:56] VITALS: BP 132/82
[2021-02-21 22:54] LABS: ANISOCYTOSIS 3+; HYPOCHROMASIA 1+; MICROCYTOSIS 1+; PLATELET ESTIMATE NORMAL; POLYCHROMASIA FEW
== END 2021-02-21 22:01 | disposition home or self-care (01) ==
LOC: ER 18:40
DX: R06.02 Shortness of breath (principal); R05 Cough; F41.9 Anxiety disorder, unspecified; F32.9 Major depressive disorder, single episode, unspecified; Z86.19 Personal history of other infectious and parasitic diseases; Z86.2 Personal history of diseases of the blood and blood-forming organs and certain disorders involving the immune mechanism; Z90.49 Acquired absence of other specified parts of digestive tract; Z98.890 Other specified postprocedural states; Z72.89 Other problems related to lifestyle; Z88.6 Allergy status to analgesic agent; Z88.8 Allergy status to other drugs, medicaments and biological substances; Z79.2 Long term (current) use of antibiotics; Z79.899 Other long term (current) drug therapy
CPT/HCPCS: 36415; 71046; 80053; 83605; 83880; 85008; 85025; 87040; 93005; 94640; 96374; 96375; 99285; J2060; J2930; 94760

== ENCOUNTER 2021-08-08 10:49 | Emergency (ER) | payer MEDICAID ==
[~2021-08-08] VITALS: Ht 157.5 cm; Wt 86.4 kg
[~2021-08-08 10:49] MED LIST changes: +ALBU8.5H17 INH; -QUET25TA34 PO; +QUET25TA36 PO
[2021-08-08 11:16] VITALS: BP 119/85
[2021-08-08 14:14] LABS: BASOPHILS % (AUTO) 0.5 % (0-1); EOSINOPHILS % (AUTO) 1.3 % (0-6); HEMOGLOBIN 9.8 g/dl (12.0-16.0); LYMPHOCYTES # (AUTO) 0.5 X10'3 (1.1-4.8); LYMPHOCYTES % (AUTO) 13.1 % (21-51); MEAN CORPUSCULAR HEMOGLOBIN 23.9 PG (27.0-31.0); MEAN CORPUSCULAR HGB CONC 31.6 g/dL (33.0-36.5); MEAN CORPUSCULAR VOLUME 75.8 FL (78-98); MEAN PLATELET VOLUME 6.8 FL (7.4-10.4); MONOCYTES # (AUTO) 0.4 X10'3 (0-0.9); MONOCYTES % (AUTO) 10.7 % (2-12); NEUTROPHILS # (AUTO) 2.8 X10'3 (1.8-7.7); NEUTROPHILS % (AUTO) 74.4 % (42-75); PLATELET COUNT 228 X10'3 (140-440); RED BLOOD COUNT 4.09 X10'6 (4.20-5.60); RED CELL DISTRIBUTION WIDTH 23.5 % (11.5-14.5); WHITE BLOOD COUNT 3.7 X10'3 (4.5-11.0)
[2021-08-08 14:38] LABS: ALBUMIN 2.6 G/DL (3.4-5.0); ANION GAP 7 (8-16); BLOOD UREA NITROGEN 5 MG/DL (7-18); BUN/CREATININE RATIO 7.6 (6.6-38.0); CALCIUM 8.3 MG/DL (8.5-10.1); CHLORIDE 106 MMOL/L (99-107); CREATININE 0.66 MG/DL (0.40-0.90); GLUCOSE 93 MG/DL (70-104); SODIUM 142 MMOL/L (135-145); TOTAL CARBON DIOXIDE 28.8 MMOL/L (24-32); eGFR > 90 ML/MIN
[2021-08-08] MEDS ORDERED: ondansetron 4mg rapidly disintigrating tab PO ONE (14:40)
[2021-08-08 14:49] LABS: PLATELET ESTIMATE NORMAL
[2021-08-08 14:50] LABS: ANISOCYTOSIS 3+; HYPOCHROMASIA 1+; MICROCYTOSIS 1+; POLYCHROMASIA 1+; SCHISTOCYTES FEW; TEAR DROP CELLS 1+
[2021-08-08] MEDS ORDERED: BUDE180A INH (15:31)
[2021-08-08] MEDS ORDERED: ALBU8.5H17 INH (15:31)
[2021-08-08] MEDS ORDERED: MYC15CR TOP (15:31)
== END 2021-08-08 15:57 | disposition home or self-care (01) ==
LOC: ER 10:49
DX: U07.1 COVID-19 (principal); L30.4 Erythema intertrigo; J44.9 Chronic obstructive pulmonary disease, unspecified; R50.9 Fever, unspecified; R06.02 Shortness of breath; R11.0 Nausea; F41.9 Anxiety disorder, unspecified; F32.9 Major depressive disorder, single episode, unspecified; F17.200 Nicotine dependence, unspecified, uncomplicated; Z86.19 Personal history of other infectious and parasitic diseases; Z86.2 Personal history of diseases of the blood and blood-forming organs and certain disorders involving the immune mechanism; Z90.49 Acquired absence of other specified parts of digestive tract; Z98.890 Other specified postprocedural states; Z72.89 Other problems related to lifestyle; Z88.8 Allergy status to other drugs, medicaments and biological substances; Z88.6 Allergy status to analgesic agent; Z79.2 Long term (current) use of antibiotics; Z79.899 Other long term (current) drug therapy
CPT/HCPCS: 36415; 71045; 80048; 84145; 85008; 85025; 87635; 99284; C9803

== ENCOUNTER 2022-03-22 10:28 | Inpatient (IN) | payer MEDICAID ==
[~2022-03-22] VITALS: Ht 157.5 cm; Wt 97.9 kg
[~2022-03-22 10:28] MED LIST changes: +BUDE180A INH; +MYC15CR TOP
[2022-03-22 18:25] LABS: BASOPHILS % (AUTO) 0.3 % (0-1); EOSINOPHILS # (AUTO) 0.1 X10'3 (0-0.9); EOSINOPHILS % (AUTO) 2.1 % (0-6); HEMATOCRIT 37.4 % (35.0-45.0); LYMPHOCYTES # (AUTO) 1.1 X10'3 (1.1-4.8); LYMPHOCYTES % (AUTO) 17.1 % (21-51); MEAN CORPUSCULAR HEMOGLOBIN 29.5 PG (27.0-31.0); MEAN CORPUSCULAR HGB CONC 32.1 g/dL (33.0-36.5); MEAN CORPUSCULAR VOLUME 91.7 FL (78-98); MONOCYTES # (AUTO) 0.6 X10'3 (0-0.9); MONOCYTES % (AUTO) 9.5 % (2-12); NEUTROPHILS # (AUTO) 4.5 X10'3 (1.8-7.7); PLATELET COUNT 162 X10'3 (140-440); RED BLOOD COUNT 4.08 X10'6 (4.20-5.60); RED CELL DISTRIBUTION WIDTH 33.6 % (11.5-14.5); WHITE BLOOD COUNT 6.3 X10'3 (4.5-11.0)
[2022-03-22 18:45] LABS: ALANINE AMINOTRANSFERASE 85 U/L (12-78); ALBUMIN/GLOBULIN RATIO 0.7 (1.1-1.5); ALKALINE PHOSPHATASE 443 IU/L (46-116); ANION GAP 14 (8-16); ASPARTATE AMINO TRANSFERASE 202 U/L (10-37); BILIRUBIN,TOTAL 0.9 MG/DL (0.1-1.0); BLOOD UREA NITROGEN 3 MG/DL (7-18); BUN/CREATININE RATIO 3.7 (6.6-38.0); CALCIUM 8.8 MG/DL (8.5-10.1); CHLORIDE 101 MMOL/L (99-107); CREATININE 0.81 MG/DL (0.40-0.90); ETHANOL 0.078 GM/DL (0.0-0.010); GLUCOSE 111 MG/DL (70-104); SODIUM 142 MMOL/L (135-145); TOTAL CARBON DIOXIDE 26.8 MMOL/L (24-32); TOTAL PROTEIN 7.4 G/DL (6.4-8.2); eGFR 76 ML/MIN
[2022-03-22 18:51] LABS: POTASSIUM 2.9 MMOL/L (3.5-5.1)
[2022-03-22 18:52] LABS: ACETAMINOPHEN < 2.0 UG/ML (10-30)
[2022-03-22] MEDS ORDERED: magnesium 2GM in 50ml NS 50 ML IV ONE (19:15)
[2022-03-22] MEDS ORDERED: potassium Cl 10 mEq/100mL bag IV ONE (19:15)
[2022-03-22] MEDS ORDERED: potassium Cl 20 mEq SR tablet PO ONE (19:15)
[2022-03-22] MEDS ORDERED: LORazepam 1 MG tablet PO ONE (19:35)
[2022-03-22 19:40] LABS: URINE AMPHETAMINE SCREEN NEGATIVE (Neg); URINE BARBITUATE SCREEN NEGATIVE (Neg); URINE BENZODIAZEPINES SCREEN POSITIVE (Neg); URINE CANNABINOID SCREEN POSITIVE (Neg); URINE COCAINE SCREEN NEGATIVE (Neg); URINE METHADONE SCREEN POSITIVE (Neg); URINE OPIATE SCREEN NEGATIVE (Neg); URINE PHENCYCLIDINE SCREEN NEGATIVE (Neg)
[2022-03-22 20:14] LABS: ANISOCYTOSIS 3+; HYPOCHROMASIA 1+; MICROCYTOSIS 1+; PLATELET ESTIMATE NORMAL; POLYCHROMASIA FEW; STOMATOCYTES FEW; TEAR DROP CELLS FEW
[2022-03-22] MEDS ORDERED: ondansetron 4mg rapidly disintigrating tab PO ONE (21:00)
--- NOTE | 2022-03-23 02:00 | NUR ---
PT SLEEPING IN BED WITH NO SIGN OF DISTRESS
--- NOTE | 2022-03-23 04:04 | NUR ---
PT RESTING IN BED WITH NO SIGN OF DISTRESS, EVEN UNLABORED RESPIRATIONS
--- NOTE | 2022-03-23 04:22 | NUR ---
PATIENT'S PACKET WAS SENT TO [facility].
--- NOTE | 2022-03-23 05:39 | NUR ---
PT AWAKE, STATING SHE IS ANXIOUS AND SAD, REQUESTING ANOTHER ATIVAN. CONSULTED WITH DR. VASQUEZ WHO STATED VERBAL ORDER FOR 1 MG ATIVAN PO
[2022-03-23] MEDS ORDERED: LORazepam 1 MG tablet PO ONE ×4 (05:40→21:20)
--- NOTE | 2022-03-23 07:23 | NUR ---
Assumed care of pt from DHARA Balderas. Agree with previous assessment
[2022-03-23] MEDS: pantoprazole 40mg Tablet.DR PO SCH (07:30)
--- NOTE | 2022-03-23 08:22 | NUR ---
Pt remains resting at this time with eyes closed. No changes at this time.
--- NOTE | 2022-03-23 09:40 | NUR ---
[facility] in to see pt. Pt will be placed on 5150 and to seek placement.
[2022-03-23] MEDS ORDERED: METH10OR2 PO (11:41)
--- NOTE | 2022-03-23 15:29 | NUR ---
Nurse received pt. from main ER at 1500. Pt alert and sitting up in bed requesting her methadone medication. Pt receives a week supply of methadone from [facility] and administers her medications herself. Pharmacy has her single dose for today and per pt. [facility] will be deliverying the remained of her week supply tomorrow.
[2022-03-23] MEDS ORDERED: METH10SO PO (15:58)
--- NOTE | 2022-03-23 17:07 | NUR ---
Nurse spoke with the pharmacist who spoke with [facility]. [facility] informed pharmacist the pt. should have enough methadone to last her till Wednesday. This nurse spoke with the pt again regarding her methadone order and pt. changed her story, stating her roomate will be bringing in the remainder of her methadone for the week. Pt. continues to have SI, stating she would consume her psych medications.
--- NOTE | 2022-03-23 17:11 | NUR ---
CIWA paperwork inititated at 1600, pt. states she has been a chronic alcoholic for years and had her last drink on 03/22 at 3am. Pt scored a 9 on CIWA. One time orde for Ativan 1mg obtained. VS 123/77 p. 91 r. 16 O2 98% RA, zero pain.
--- NOTE | 2022-03-23 18:02 | NUR ---
Pt sitting up in bed, VS obtained. WNL.
--- NOTE | 2022-03-23 18:10 | NUR ---
CIWA score 4. Pt. alert and oriented X4. Resting on her back at this time.
[2022-03-23] MEDS: METHADONE HCL PO SCH ×2 (18:54→21:00)
--- NOTE | 2022-03-23 18:58 | NUR ---
PT STATED SHE HAS AN OVER THE PHONE COUNSELING SESSION WITH [facility] AT 11 AM TOMORROW MORNING. PT ALSO STATED SHE NEEDS THE METHADONE BOTTLES TO BE SAVED WITH HER POSESSIONS TO TURN BACK INTO THE TREATMENT CENTER. PT IS RESTING COMFORTABLY IN BED AND HAS FINISHED HER DINNER.
--- NOTE | 2022-03-23 19:18 | NUR ---
PATIENT MADDYWA SCORE A 3. PT STATED SHE FELT MUCH BETTER AFTER GETTING HER NORMAL DAILY DOSE OF METHADONE
--- NOTE | 2022-03-23 19:31 | NUR ---
PT HAD VISITOR AT BEDSIDE FOR 10 MINUTES. VISITOR LEFT AND WAS GIVEN OVERFLOW PHONE NUMBER TO CALL THE PT LATER
--- NOTE | 2022-03-23 20:30 | NUR ---
PT CIWA SCORE OF 4. PT RESTING IN BED SITTING UP. PT REQUESTING ATIVAN
--- NOTE | 2022-03-23 21:11 | NUR ---
PT SITTING UP IN BED STATING SHE IS FEELING ANXIOUS. CIWA SCORE IS 6. RN WILL CONSULT WITH DOCTOR ON TREATMENT FOR ANXIETY
--- NOTE | 2022-03-23 21:26 | NUR ---
PT GIVEN ATIVAN PER MD ORDER. PT UP TO USE RESTROOM
--- NOTE | 2022-03-23 22:03 | NUR ---
PT CIWA SCORE OF 0. PT STATES SHE FEELS MUCH BETTER AND DENIES ANY NAUSEA, HEADACHE, TREMORS, OR SWEATING. PT SLEEPING COMFORTABLY ON HER BACK. EQUAL RISE AND FALL OF CHEST NOTED
--- NOTE | 2022-03-23 23:00 | NUR ---
PT CIWA SCORE OF 0
--- NOTE | 2022-03-24 00:03 | NUR ---
PT SITTING UP IN BED EATING YOGURT. CIWA SCORE OF 1 FOR "BARELY PERCEPTIBLE SWEATING"
--- NOTE | 2022-03-24 01:06 | NUR ---
INITIAL [facility] SCORING OF A "9" BY PREVIOUS NURSE WAS INCORRECT. SWEATING SCORE SHOULD HAVE BEEN A "1" NOT A "2." INITIAL SCORE SHOULD HAVE BEEN AN "8." 8 HOURS OF HOURLY VITALS CHARTING HAVE ALREADY BEEN COMPLETED. RN WILL NOW START TAKING VITALS Q4H RATHER THAN Q2H IN RESPONSE TO AMMENDED INITIAL SCORE OF "8."
--- NOTE | 2022-03-24 01:11 | NUR ---
PT UP TO USE RESTROOM
--- NOTE | 2022-03-24 02:07 | NUR ---
PATIENT SLEEPING ON BACK. EQUAL RISE AND FALL OF CHEST NOTED
--- NOTE | 2022-03-24 04:03 | NUR ---
PATIENT SITTING UP IN BED TAPPING FOOT. PT STATES SHE FEELS ANXIOUS. RN BROUGHT PATIENT SOME ICE WATER AND PT SAID SHE WAS GOING TO TRY TO GO BACK TO SLEEP. CIWA SCORE OF 3
--- NOTE | 2022-03-24 05:45 | NUR ---
PT SITTING UP IN BED WHILE TECH TAKES VITALS. PT IS IN NO APPARENT DISTRESS AND IS COOPERATING WITH TECH
--- NOTE | 2022-03-24 05:54 | NUR ---
PT COMPLAINING OF INCREASING ANXIETY. RN SPOKE WITH ZAHEER RAI AND RECIEVED VERBAL ORDER FOR 1 MG PO ATIVAN ONCE
[2022-03-24] MEDS ORDERED: LORazepam 1 MG tablet PO ONE ×2 (05:55→12:30)
--- NOTE | 2022-03-24 06:30 | NUR ---
PATIENT RECEIVED SLEEPING SUPINE IN HER ROOM AT SHIFT CHANGE. NOTED RISE AND FALL OF CHEST. NO S/S OF DISTRESS. WILL CONTINUE TO MONITOR.
[2022-03-24] MEDS: pantoprazole 40mg Tablet.DR PO SCH (08:23)
--- NOTE | 2022-03-24 08:35 | NUR ---
PATIENT AWOKE FOR BREAKFAST AND IS NOTED SITTING IN HER ROOM WITH A VISITOR AT BEDSIDE AT THIS TIME. SHE IS A&O X4, CALM AND COOPERATIVE. PATIENT WAS RECEPTIVE TO SCHEDULED MEDICATION. NO COMPLAINTS OR S/S OF DISTRESS NOTED. PATIENTS PERSONAL METHADONE BROUGHT IN BY VISITOR AND IS BEING STORED IN THE PHARMACY. WILL CONTINUE TO MONITOR.
--- NOTE | 2022-03-24 10:30 | NUR ---
PATIENT WAS RECEPTIVE TO 1:1 ASSESSMENT. SHE ENDORSED FEELING "SAD" AND "NOT HAPPY TO BE ALIVE". PATIENT REPORTING PASSIVE SI WITH NO PLAN NOTED. SHE IS OBSERVED RESTING IN HER ROOM AT THIS TIME WITH RISE AND FALL OF CHEST NOTED. NO CHANGES OR COMPLAINTS MADE.
--- NOTE | 2022-03-24 12:30 | NUR ---
PATIENT OBSERVED EATING LUNCH IN HER ROOM. NO COMPLAINTS OR S/S OF DISTRESS.
--- NOTE | 2022-03-24 12:39 | NUR ---
Met with patient in regards to her provider for methadone and patient wanted to discuss alcohol use and what can be taken to help cravings. I talked to patient about Naltrexone. I gave patient my card to call me with any questions.
--- NOTE | 2022-03-24 13:30 | NUR ---
THIS FERN PICKER CONTACTED [facility] IN [place] REGARDING PATIENT'S MATHADONE REFILL. PATIENT HAS A THREE DAY SUPPLY OF LIQUID METHADONE BEING STORED IN THE PHARMACY. PATIENT UNABLE TO GO TO [facility] TO PICKUP REFILLS THIS Wednesday03/27/22 PREVIOUSLY COORDINATED. THIS FERN PICKER SPOKE WITH DR. JACOBO REGARDING SWITCHING PATIENT FROM LIQUID METHADONE TO TABLET FORM. HOWEVER, OUR PHARMACY DOES NOT CARRY LIQUID OR TABLET METHADONE IN THE PRESCRIBED DOSAGE THAT PATIENT REQUIRES. THIS FERN PICKER ATTEMPTED TO CALL [facility] BACK BUT THEY ARE CLOSED FOR THE DAY. WILL RELAY INFORMATION TO ONCOMING NURSE. [facility] PHONE NUMBER .
--- NOTE | 2022-03-24 14:35 | NUR ---
PATIENT IS OBSERVED SLEEPING SUPINE IN HER ROOM AT THIS TIME. RESPIRATIONS EVEN, UNLABORED. WILL CONTINUE TO MONITOR.
--- NOTE | 2022-03-24 16:30 | NUR ---
PATIENT IS NOTED SLEEPING AT THIS TIME. RESPIRATIONS EVEN, UNLABORED. NO S/S OF DISTRESS. WILL CONTINUE TO MONITOR.
--- NOTE | 2022-03-24 17:45 | NUR ---
PATIENT IS OBSERVED SITTING IN HER ROOM WITH A VISITOR AT BEDSIDE. PATIENT GAVE HER VISITOR $19 SNOW AND HER CELLPHONE OUT OF HER PERSONAL BELONGINGS FOR HER VISITOR TO TAKE HOME. SHE HAS NO COMPLAINTS OR S/S OF DISTRESS NOTED. WILL CONTINUE TO MONITOR.
--- NOTE | 2022-03-24 17:58 | NUR ---
IV TO RIGHT WRIST REMOVED WITH NO COMPLICATIONS. CANNULA TIP INTACT. NO REDNESS OR SWELLING NOTED. PATIENT TOLERATED WELL WITH NO C/O PAIN.
--- NOTE | 2022-03-24 19:12 | NUR ---
PT RESTING IN BED AND IN NO APPARENT DISTRESS
--- NOTE | 2022-03-24 19:43 | NUR ---
PT CAME UP TO NURSE TO REQUEST ATIVAN. THIS RN STATED THAT THERE IS NONE ORDERED AND THAT WE WOULD SEE HOW SHE IS FEELING AFTER HER NIGHTTIME MEDICATIONS. PT WALKED TO HER BED AND BEGAN LOUDLY CRYING. RN TRIED THERAPEUTIC COMMUNICATION BUT PT IS UPSET THAT SHE CANNOT HAVE ATIVAN RIGHT IN THIS MOMENT. PT'S ROOMMATE, MEGGAN, CALLED AT THIS TIME AND SHE STATED SHE DID NOT WANT TO TALK TO HIM UNTIL MORNING.
--- NOTE | 2022-03-24 20:22 | NUR ---
THIS RN SPOKE WITH ENEDELIA RAI ABOUT PATIENT'S INCREASING ANXIETY. ORDERED ATIVAN PO Q6HR
[2022-03-24] MEDS: LORazepam 1 MG tablet PO PRN (20:25)
--- NOTE | 2022-03-24 20:29 | NUR ---
PT IMMEDIATELY STOPPED CRYING AND LAID IN BED QUIETLY AFTER RECEIVING THE ATIVAN. THIS RN SPOKE WITH [facility] WHO STATES THAT THEY WILL BE MOVING HER UPSTAIRS THIS EVENING. PT UP TO USE RESTROOM WHILE RN IS WRITING THIS NOTE
[2022-03-24] MEDS: METHADONE HCL PO SCH (20:32)
--- NOTE | 2022-03-24 20:58 | NUR ---
HILDA FROM [facility] TALKING WITH PATIENT AT BEDSIDE AND PREPARING TO BRING HER UPSTAIRS
[2022-03-24] MEDS ORDERED: mag hydrox/Alum hydrox/simeth 30ml oral suspension PO PRN (21:05)
[2022-03-24] MEDS ORDERED: loperamide 2mg capsule PO PRN (21:05)
[2022-03-24] MEDS ORDERED: acetaminophen 325mg tablet PO PRN ×2 (21:05)
[2022-03-24 22:49] VITALS: BP 116/65
[2022-03-24] MEDS: traZODone 50mg tablet PO PRN (22:53)
--- NOTE | 2022-03-24 23:30 | NUR ---
Admission Note: 47 year old female on a 5150 for DTS, was seen by [facility] Crisis Response Team and she has a plan to OD on her medications and had gathered them in preparation. She is a patient of Dr. Hendrickson and attempted to make an appointment but was unable to be seen until July. Current stressors include her health issues which are effecting her daily life and feeling like she isn't getting the help she needs for her medical issues and difficulty getting to appointments due to no transportation. Pt brought to the unit via wheelchair by HELIO Mao, safety check completed by Mayco CADET, skin check completed by myself and Petra JULES. She has a history of Major Depression and anxiety, hx of heroin abuse(hasn't used for years) and meth (last used 7 months ago). Does report daily drinking 5 to 6 Alexandre Hard Lemonade, she denies any history of withdrawal or DT's. She is on Methadone thru [facility], 113 mg daily. Medical issues include Hep C, COPD, hx of gastric bypass.
[2022-03-25] MEDS: LORazepam 1 MG tablet PO PRN ×2 (05:19→13:31)
[2022-03-25 07:29] VITALS: BP 104/66
[2022-03-25 07:40] LABS: HEMOGLOBIN A1C 4.6 % (4.5-6.2)
[2022-03-25] MEDS: pantoprazole 40mg Tablet.DR PO SCH (07:43)
[2022-03-25 07:44] LABS: CHOL/HDL RATIO 4.6 (0.00-4.99); CHOLESTEROL 152 MG/DL (0-200); HDL CHOLESTEROL 33 MG/DL (35-60); LDL CHOLESTEROL 80 MG/DL (50-100); TRIGLYCERIDES 69 MG/DL (20-135)
--- NOTE | 2022-03-25 09:16 | NUR ---
CM-Continuity of Care Presenting Issues: Pt's a new admit to [facility], per chart review-she receives Methadone treatment via [facility] and has been cleared by [facility] to receive Methadone tablet while inpatient. Pt's current meds did not include Methadone tablet. Interventions: Clinician notified attending physician & care team. Per consultation, it was discovered that the ER nurse had entered the wrong form when she ordered the Methadone for pt. [facility] Ch RN will make the corrections. Plan: Clinician will meet w/pt to complete Assessment. Dione Wall LCSW Addendum: 03/25/22 at 0923 by Dione Wall SS Amended: Links added.
--- NOTE | 2022-03-25 10:45 | NUR ---
Assessment Presenting Issues: Pt admitted to [facility] following 5150 due to increasing depression w/SI and plan to OD. Interventions: Clinician met w/pt and engaged her in completing a psychosocial assessment and treatment plan. 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 Pt is also receiving MAT services [facility] and has weekly Addiction Counseling services. Plan: Pt meets criteria for continued inpatient psychiatric care to stabilize her mood and mitigate risks associated w/DTS concerns. Dione Wall LCSW Addendum: 03/26/22 at 1126 by Dione Wall SS Amended: Links added.
--- NOTE | 2022-03-25 17:31 | NUR ---
Nursing Progress Note: Georgina Problem: Patient has a plan to OD on her medications and had gathered them in preparation. She is a patient of Dr. Hendrickson and attempted to make an appointment but was unable to be seen until July. Current stressors include her health issues which are effecting her daily life and feeling like she isn't getting the help she needs for her medical issues and difficulty getting to appointments due to no transportation. Intervention: Medication given as ordered with no adverse side effects noted. Provided with a safe and therapeutic environment, clear communication, active listening and positive encouragement. Response: Patient is resting quietly in bed at the start of the shift. Patient is cooperative with assessment and medications. She c/o anxiety relieved by PRN Ativan. Patient isolates to her room most of the shift and appears guarded. Endorses suicidal ideation with a plan to OD on her medication. Current stressors include health problems that the patient appears overwhelmed by. Plan: Patient continues to require crisis interruption and stabilization with medication management and monitoring in a safe and therapeutic environment.
[2022-03-25] MEDS: methadone 10mg tablet PO SCH (18:08)
[2022-03-25] MEDS: magnesium hydroxide 30ml (MOM) UD suspension PO PRN (18:16)
[2022-03-25] MEDS: venlafaxine 25mg tablet PO SCH (19:15)
[2022-03-25] MEDS: gabapentin 100mg capsule PO SCH (19:15)
[2022-03-25] MEDS: LORazepam 1 MG tablet PO SCH (19:15)
[2022-03-25 20:00] VITALS: BP 112/67
[2022-03-25] MEDS ORDERED: gabapentin 100mg capsule PO SCH (21:00)
[2022-03-25] MEDS ORDERED: LORazepam 1 MG tablet PO SCH (21:00)
[2022-03-25] MEDS: traZODone 50mg tablet PO PRN (23:54)
--- NOTE | 2022-03-26 01:59 | NUR ---
Nursing Progress Note: Georgina Problem: Patient has a plan to OD on her medications and had gathered them in preparation. She is a patient of Dr. Hendrickson and attempted to make an appointment but was unable to be seen until July. Current stressors include her health issues which are effecting her daily life and feeling like she isn't getting the help she needs for her medical issues and difficulty getting to appointments due to no transportation. Intervention: Medication given as ordered with no adverse side effects noted. Provided with a safe and therapeutic environment, clear communication, active listening and positive encouragement. Response: Patient in bed at the start of the shift, later came out to watch tv and attend evening snacks. She denies S/I at this time, but continues to report feeling depressed and anxious. Affect is congruent to her mood. Requested PRN Trazadone for sleep which was effective. Plan: Patient continues to require crisis interruption and stabilization with medication management and monitoring in a safe and therapeutic environment.
[2022-03-26] MEDS: pantoprazole 40mg Tablet.DR PO SCH (06:59)
[2022-03-26] MEDS: venlafaxine 25mg tablet PO SCH ×2 (06:59→12:33)
[2022-03-26] MEDS: gabapentin 100mg capsule PO SCH ×3 (06:59→20:29)
[2022-03-26] MEDS: LORazepam 1 MG tablet PO SCH ×3 (07:00→20:29)
[2022-03-26 08:00] VITALS: BP 109/67
--- NOTE | 2022-03-26 11:26 | NUR ---
CM-Continuity of Care Presenting Issues: Pt's on Methadone & receives it from [facility]. Pt's 5150 will on Tuesday 03/27 at 9:20pm. Pt only has 1 dose of her home Methadone left, this increases risk for w/drawal if pt is d/c on the weekend. Interventions: Clinician consulted MDT per d/c concerns, per consultation, it was decided that pt should be offered option to sign voluntary when her 5150 expires. Clinician discussed this w/pt and pt was amenable to signing Vol and stay until Wednesday when [facility] will pt can access services at [facility]. Plan: pt will sign Vol when 5150 expires. Dione Wall LCSW Addendum: 03/26/22 at 1138 by Dione Wall SS Amended: Links added.
--- NOTE | 2022-03-26 15:45 | NUR ---
Nursing Progress Note: Georgina Problem: Patient has a plan to OD on her medications and had gathered them in preparation. She is a patient of Dr. Hendrickson and attempted to make an appointment but was unable to be seen until July. Current stressors include her health issues which are effecting her daily life and feeling like she isn't getting the help she needs for her medical issues and difficulty getting to appointments due to no transportation. Intervention: Medication given as ordered with no adverse side effects noted. Provided with a safe and therapeutic environment, clear communication, active listening and positive encouragement. Response: Patient is resting quietly in bed at the start of the shift. Complains of anxiety relieved by routine medications. Continues to endorse suicidal ideation but contracts for safety while here on the unit. Denies any homicidal ideation. Denies auditory/ visual hallucinations. Patient isolates to her room looking out the window but does come out for meals and to meet her needs. Patient is Cooperative with medication and assessment. Plan: Patient continues to require crisis interruption and stabilization with medication management and monitoring in a safe and therapeutic environment.
[2022-03-26] MEDS: methadone 10mg tablet PO SCH (17:35)
[2022-03-26] MEDS: magnesium hydroxide 30ml (MOM) UD suspension PO PRN (17:47)
[2022-03-26 19:00] VITALS: BP 116/68
--- NOTE | 2022-03-27 01:08 | NUR ---
Nursing Progress Note: Problem: Patient has a plan to OD on her medications and had gathered them in preparation. She is a patient of Dr. Hendrickson and attempted to make an appointment but was unable to be seen until July. Current stressors include her health issues which are effecting her daily life and feeling like she isn't getting the help she needs for her medical issues and difficulty getting to appointments due to no transportation. Intervention: Medication given as ordered with no adverse side effects noted. Provided with a safe and therapeutic environment, clear communication, active listening and positive encouragement. Response: Pt lying in bed at the start of the shift, asked to take a shower, which she did, and then later was watching tv with peers. She reports feeling somewhat better today, more hopeful after meeting with the Dr today and discussing medications to help with her depression. She reports depression still there, but somewhat improved, states anxiety still significant. She did request and Ativan at 1940, but she no longer has PRN Ativan only scheduled, which she was given when it was due. She had a phone call with her daughter which went very well. Denies any thoughts of suicide this shift. Plan: Patient continues to require crisis interruption and stabilization with medication management and monitoring in a safe and therapeutic environment.
[2022-03-27] MEDS: cloNIDine 0.1 mg tablet PO PRN ×2 (05:35→22:33)
[2022-03-27 07:30] VITALS: BP 104/68
[2022-03-27] MEDS: LORazepam 1 MG tablet PO SCH ×3 (07:47→20:32)
[2022-03-27] MEDS: venlafaxine 25mg tablet PO SCH ×3 (07:47→20:31)
[2022-03-27] MEDS: gabapentin 100mg capsule PO SCH ×3 (07:47→20:32)
[2022-03-27] MEDS: pantoprazole 40mg Tablet.DR PO SCH (07:47)
--- NOTE | 2022-03-27 10:51 | NUR ---
Initial: Pt admit for MDD with SI. Currently on a regular diet with fluctuating PO intake however overall eating well with average 81% PO intake meeting estimated nutrient needs. LBM 03/25 documented as small. Pt receiving PRN MoM and denies GI symptoms per EMR. D/w dietary to send prunes and prune juice with next meal to further assist with bowel regularity. Will continue to follow and monitor need for additional nutrition intervention. Recommendations: 1) Continue regular diet 2) Routine bowel care 3) Weekly scaled weights Addendum: 03/27/22 at [address] Amended: Links added.
--- NOTE | 2022-03-27 15:54 | NUR ---
Nursing Progress Note: Problem: Patient has a plan to OD on her medications and had gathered them in preparation. She is a patient of Dr. Hendrickson and attempted to make an appointment but was unable to be seen until July. Current stressors include her health issues which are effecting her daily life and feeling like she isn't getting the help she needs for her medical issues and difficulty getting to appointments due to no transportation. Intervention: Administered medication as ordered with no adverse side effects noted. Provided a safe and therapeutic environment, clear communication, active listening and positive encouragement. Talked with patient to contract for safety. Encouraged participation in group therapy. Response: Pt presented depressed and fatigued. Pt was compliant with care and medication. Pt isolated to her room most of the shift either sleeping or sitting in her chair looking out the window. Pt out for meals. Pt continues to endorse suicidal thoughts, but is able to contract for safety. Pt declined to attend group Im just tired. Plan: Patient requires in interruption of current crisis. Pt continues to endorse suicidal thoughts and presents with depressive symptoms. Pt requires medications stabilization and may be high risk discharge at this time.
[2022-03-27] MEDS: methadone 10mg tablet PO SCH (18:11)
[2022-03-27 20:00] VITALS: BP 118/69
[2022-03-27] MEDS: thiamine 100mg tablet PO SCH (20:32)
[2022-03-27] MEDS: nystatin 15 GM powder TP SCH (20:38)
--- NOTE | 2022-03-28 | NUR ---
PRN GIVEN: pt was sitting up awake in bed, stating her mind was racing. She requests clonidine which was given to her with good affect.
--- NOTE | 2022-03-28 03:32 | NUR ---
Nursing Progress Note: Problem: Patient has a plan to OD on her medications and had gathered them in preparation. She is a patient of Dr. Hendrickson and attempted to make an appointment but was unable to be seen until July. Current stressors include her health issues which are effecting her daily life and feeling like she isn't getting the help she needs for her medical issues and difficulty getting to appointments due to no transportation. Intervention: Administered medication as ordered with no adverse side effects noted. Provided a safe and therapeutic environment, clear communication, active listening and positive encouragement. Response: PT is visible on the unit at shift change, watching TV in the red room alone. She is pleasant on 1:1 assessment and explains that this is the first time she has been sober "her entire life." "I never really wanted to be sober before, I would get hospitalized, take the pills they wanted, just knowing I was going to get out and do drugs and drink. I know I need to stop drinking but I have no want to go do drugs anymore." "I actually feel hopeful and have thought about going to something like [facility], but honestly I would rather not go to a place like that because a lot of the people are placed there and I don't want to be around a bunch of people this [place]." She denies AH/VH/HI and states she is feeling more optimistic when asked about SI and that she isn't thinking about it right now. Plan: Patient requires in interruption of current crisis. Pt continues to endorse suicidal thoughts and presents with depressive symptoms. Pt requires medications stabilization and may be high risk discharge at this time.
[2022-03-28] MEDS: venlafaxine 25mg tablet PO SCH ×3 (07:58→19:14)
[2022-03-28] MEDS: thiamine 100mg tablet PO SCH ×2 (07:58→19:13)
[2022-03-28] MEDS: gabapentin 100mg capsule PO SCH ×3 (07:58→19:14)
[2022-03-28] MEDS: LORazepam 1 MG tablet PO SCH ×2 (07:58→13:25)
[2022-03-28] MEDS: nystatin 15 GM powder TP SCH ×3 (07:58→19:19)
[2022-03-28] MEDS: pantoprazole 40mg Tablet.DR PO SCH (07:58)
[2022-03-28] MEDS: multivitamins, therapeutics tablet PO SCH (07:59)
[2022-03-28] MEDS: folic acid 1mg tablet PO SCH (07:59)
[2022-03-28 08:27] VITALS: BP 108/68
--- NOTE | 2022-03-28 14:46 | NUR ---
Nursing Progress Note: Problem: Patient has a plan to OD on her medications and had gathered them in preparation. She is a patient of Dr. Hendrickson and attempted to make an appointment but was unable to be seen until July. Current stressors include her health issues which are effecting her daily life and feeling like she isn't getting the help she needs for her medical issues and difficulty getting to appointments due to no transportation. Intervention: Administered medication as ordered with no adverse side effects noted. Provided a safe and therapeutic environment, clear communication, active listening and positive encouragement. Talked with patient to contract for safety. Encouraged participation in group therapy. Response: Patient presented more optimistic today. Pt attended all meals in group room and was more visible on unit. Pt did voice apprehension r/t not being discharged on Ativan. Pt states Ativan is what keeps me from craving alcohol. Plan: Patient requires in interruption of current crisis. Pt endorses suicidal thoughts, but states thoughts are becoming less. Pt is more optimistic. Pt requires medication adjustment to therapeutic level for discharge.
[2022-03-28] MEDS: methadone 10mg tablet PO SCH (17:14)
--- NOTE | 2022-03-28 18:20 | NUR ---
assumed care of patient after receiving report.
[2022-03-28 20:00] VITALS: BP 113/74
[2022-03-28] MEDS: LORazepam 1 MG tablet PO PRN (21:22)
[2022-03-29] MEDS: cloNIDine 0.1 mg tablet PO PRN ×2 (02:14→19:16)
--- NOTE | 2022-03-29 03:21 | NUR ---
pt pleasant. would not discuss anything. approached staff approximately 0200 for something for anxiety. PRN given. pt now asleep.
[2022-03-29] MEDS: LORazepam 1 MG tablet PO PRN ×3 (06:21→21:32)
[2022-03-29 07:55] VITALS: BP 114/78
[2022-03-29] MEDS: multivitamins, therapeutics tablet PO SCH (08:33)
[2022-03-29] MEDS: thiamine 100mg tablet PO SCH ×2 (08:33→20:07)
[2022-03-29] MEDS: folic acid 1mg tablet PO SCH (08:33)
[2022-03-29] MEDS: venlafaxine 25mg tablet PO SCH ×3 (08:33→20:07)
[2022-03-29] MEDS: gabapentin 100mg capsule PO SCH ×3 (08:33→20:07)
[2022-03-29] MEDS: pantoprazole 40mg Tablet.DR PO SCH (08:33)
[2022-03-29] MEDS: nystatin 15 GM powder TP SCH ×2 (08:34→20:28)
--- NOTE | 2022-03-29 14:29 | NUR ---
Nursing Progress Note: Problem: Patient has a plan to OD on her medications and had gathered them in preparation. She is a patient of Dr. Hendrickson and attempted to make an appointment but was unable to be seen until July. Current stressors include her health issues which are effecting her daily life and feeling like she isn't getting the help she needs for her medical issues and difficulty getting to appointments due to no transportation. Intervention: Administered medication as ordered with no adverse side effects noted. Pts Gabapentin was increased to 300mg TID. Provided a safe and therapeutic environment, clear communication, active listening and positive encouragement. Talked with patient to contract for safety. Encouraged participation in group therapy. Response: Patient continues to be more optimistic. Pt states this unit is a god send. Pt denies suicidal/homicidal thoughts at this time. Pt continues to have apprehension about being kicked out of here. She feels if she left here now she would drink and when she drinks she has suicidal thoughts. Pt worries she wont have her Ativan when she leaves as Ativan is what keeps me from craving alcohol. Pt states she has spoken to provider about this. Pt attended all meals in group room and continues to be more visible on unit. Noted in group room coloring. Pt denies A/VH. Plan: Patient requires in interruption of current crisis. Pts suicidal thoughts are becoming less. Pt is more optimistic. Pt requires medication adjustment to therapeutic level for discharge.
[2022-03-29] MEDS: methadone 10mg tablet PO SCH (17:23)
[2022-03-29 19:48] VITALS: BP 126/81
--- NOTE | 2022-03-30 02:11 | NUR ---
Nursing Progress Note: Problem: Patient has a plan to OD on her medications and had gathered them in preparation. She is a patient of Dr. Hendrickson and attempted to make an appointment but was unable to be seen until July. Current stressors include her health issues which are effecting her daily life and feeling like she isn't getting the help she needs for her medical issues and difficulty getting to appointments due to no transportation. Intervention: Administered medication as ordered with no adverse side effects noted. Provided a safe and therapeutic environment, clear communication, active listening and positive encouragement. Response: Patient was relaxing in the group room after dinner. She was sitting with her roommate watching a movie. Patient reports that she's doing well now that she is off all drugs and alcohol. "I'm not thinking of suicide right now. I'm actually feeling a little hopeful about recovery for the first time." She requested Clonidine early in the shift for anxiety. Patient was compliant with HS meds, but also requested Ativan to control the anxiety, and also help her get to sleep. Patient slept until ~0200 when she woke up from a dream believing that someone was on the phone for her. she easily went back to sleep. Plan: Patient requires in interruption of current crisis. Pt continues to endorse suicidal thoughts and presents with depressive symptoms. Pt requires medications stabilization and may be high risk discharge at this time.
[2022-03-30] MEDS: LORazepam 1 MG tablet PO PRN (06:40)
--- NOTE | 2022-03-30 06:40 | NUR ---
PRNs Administered: Ativan 1mg Interventions Offered: Pt. approached this insurance underwriter at the beginning of the shift reporting anxiety. A quiet environment free from distractions was provided. Response to Medication: Pt. thanked this insurance underwriter, and will continue to monitor closely.
[2022-03-30 08:00] VITALS: BP 114/76
[2022-03-30] MEDS: thiamine 100mg tablet PO SCH ×2 (08:55→20:05)
[2022-03-30] MEDS: multivitamins, therapeutics tablet PO SCH (08:55)
[2022-03-30] MEDS: folic acid 1mg tablet PO SCH (08:55)
[2022-03-30] MEDS: nystatin 15 GM powder TP SCH ×2 (08:55→20:06)
[2022-03-30] MEDS: pantoprazole 40mg Tablet.DR PO SCH (08:55)
[2022-03-30] MEDS: gabapentin 100mg capsule PO SCH ×3 (08:55→20:06)
[2022-03-30] MEDS: venlafaxine 25mg tablet PO SCH ×2 (08:55→20:06)
[2022-03-30 11:11] VITALS: BP 112/77
[2022-03-30] MEDS: cloNIDine 0.1 mg tablet PO PRN (11:13)
--- NOTE | 2022-03-30 11:16 | NUR ---
PRNs Administered: Clonidine 0.1mg Interventions Offered: This process description writer provided active listening and positive encouragement. Response to Medication: Pt. thanked this process description writer and lay down in bed, will continue to monitor closely.
[2022-03-30] MEDS ORDERED: LORazepam 1 MG tablet PO SCH (13:00)
--- NOTE | 2022-03-30 17:32 | NUR ---
Problem : Patient has a plan to OD on her medications and had gathered them in preparation. She is a patient of Dr. Hendrickson and attempted to make an appointment but was unable to be seen until July. Current stressors include her health issues which are effecting her daily life and feeling like she isn't getting the help she needs for her medical issues and difficulty getting to appointments due to no transportation. Pt. reports ongoing depression and anxiety. Interventions : Introduced self and established rapport, maintained a safe and supportive environment, ensured contract for safety, provided clear and simple instructions, provided active listening and positive encouragement, and maintained Q 15min safety checks. Response : Received pt. awake on the unit at the beginning of the shift, she approached the nurses station and requested a PRN anxiolytic, Ativan was administered with effectiveness. Afterwards, pt. sat up in the Recreation Room watching TV with others. Pt. attended breakfast in the Group Room and afterwards retreated back to her room where she remained withdrawn throughout much of the shift. 1:1 was completed at bedside, pt. denies any current S/I, however reports ongoing depression and anxiety. She states, "I'm afraid if I go home without Ativan, I'll start drinking again." When questioned by this proposal lead writer regarding her desire to attend substance rehabilitation, pt. reports she is afraid if she attends rehab she will see others that she used to use heroin or methamphetamines with and will be tempted to use again. Pt. 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 Pt. remains withdrawn in her room throughout much of the shift and is not observed to be interacting with others. Plan : Per ANUP Biggs , pt. continues to require a safe and supportive environment.
[2022-03-30] MEDS ORDERED: methadone 10mg tablet PO SCH ×2 (18:00→18:03)
[2022-03-30] MEDS: methadone 5mg tablet PO SCH (18:24)
[2022-03-30] MEDS: methadone 10mg tablet PO SCH (18:25)
[2022-03-30] MEDS: LORazepam 1 MG tablet PO SCH (20:05)
[2022-03-30 20:50] VITALS: BP 113/78
[2022-03-31] MEDS: cloNIDine 0.1 mg tablet PO PRN ×3 (01:41→22:21)
--- NOTE | 2022-03-31 01:55 | NUR ---
Nursing Progress Note: Problem: Patient has a plan to OD on her medications and had gathered them in preparation. She is a patient of Dr. Hendrickson and attempted to make an appointment but was unable to be seen until July. Current stressors include her health issues which are effecting her daily life and feeling like she isn't getting the help she needs for her medical issues and difficulty getting to appointments due to no transportation. Intervention: Administered medication as ordered with no adverse side effects noted. Provided a safe and therapeutic environment, clear communication, active listening and positive encouragement. Response: Patient watched TV in the rec room with a couple cohorts. She is quiet and withdrawn, but answers when spoken to. Patient had received her Methadone not long ago, and looked like she was having hard time keeping her eyes open. She didn't feel like talking. Patient did report that she's still feeling depressed, but not suicidal. She denies other MH symptoms. She received her HS meds, and wanted Ativan closer to bedtime, so she let me know when she was ready. Patient woke up ~0140 and requested Clonidine with good results. Plan: Patient requires in interruption of current crisis. Pt continues to endorse suicidal thoughts and presents with depressive symptoms. Pt requires medications stabilization and may be high risk discharge at this time.
[2022-03-31] MEDS: LORazepam 1 MG tablet PO SCH ×3 (07:42→20:28)
[2022-03-31] MEDS: gabapentin 100mg capsule PO SCH ×3 (07:42→20:28)
[2022-03-31] MEDS: venlafaxine 25mg tablet PO SCH ×3 (07:43→20:29)
[2022-03-31] MEDS: pantoprazole 40mg Tablet.DR PO SCH (07:43)
[2022-03-31 08:00] VITALS: BP 120/69
[2022-03-31] MEDS: nystatin 15 GM powder TP SCH ×2 (08:28→20:29)
[2022-03-31] MEDS: folic acid 1mg tablet PO SCH (08:28)
[2022-03-31] MEDS: thiamine 100mg tablet PO SCH ×2 (08:28→20:28)
[2022-03-31] MEDS: multivitamins, therapeutics tablet PO SCH (08:28)
--- NOTE | 2022-03-31 14:00 | NUR ---
Nursing Progress Note: Problem : Patient has a plan to OD on her medications and had gathered them in preparation. She is a patient of Dr. Hendrickson and attempted to make an appointment but was unable to be seen until July. Current stressors include her health issues which are effecting her daily life and feeling like she isn't getting the help she needs for her medical issues and difficulty getting to appointments due to no transportation. Pt. reports some ongoing anxiety. Interventions :Maintained a safe and supportive environment, ensured contract for safety, provided clear and simple instructions, provided active listening and positive encouragement, encouraged participation on the unit, and maintained Q 15min safety checks. Response : Received pt. sleeping at the beginning of the shift, she awoke a short time later and immediately came to the nurse's station requesting PRN Ativan for anxiety. Medication was administered with effectiveness. Pt. sat up in the Recreation Room interacting appropriately with others before attending breakfast. Afterwards, pt. retreated back to bed and 1:1 was completed at bedside. Pt. denies S/I or depression this shift and states animatedly, "I'm feeling a lot better." When questioned regarding anxiety, pt. admitted to some ongoing anxiety however stated, "With the Ativan, Neurontin, and Clonidine I think I can keep it under control." Pt. denies the desire to use any substances, including alcohol upon her return home. Pt. naps intermittently during the day, however is observed to have increased presence on the unit this shit and is interacting with others. Plan : Per social worker palliative care, pt. will likely discharge back home tomorrow, she continues to require a safe and supportive environment.
[2022-03-31 14:45] VITALS: BP 113/78
--- NOTE | 2022-03-31 14:55 | NUR ---
PRNs Administered: Clonidine 0.1mg Interventions Offered: This sba underwriter provided active listening and positive encouragement. Response to Medication: Pt. thanked this write, will continue to monitor closely.
--- NOTE | 2022-03-31 15:11 | NUR ---
DCP Presenting Issues: Pt's on Vol, denying SI/AH/VH/HI/Depression and reports that anxiety is fairly low. Interventions: Clinician met w/pt & engaged her in dcp activities to prepare for d/c tomorrow. Clinician had t/c with [facility] and coordinated a post-hospital follow-up for pt w/Dr. Reardon on 05/13 @ 1:45PM. Clinician had t/c w/pt's PMD, PMD's nurse will reach out to pt to provide post-hospital f/u upon d/c. Plan: Pt to d/c tomorrow. Addendum: 03/31/22 at 1515 by Dione PATHAK Amended: Links added.
[2022-03-31] MEDS: methadone 5mg tablet PO SCH (17:53)
[2022-03-31] MEDS: methadone 10mg tablet PO SCH (17:53)
[2022-03-31 19:35] VITALS: BP 107/70
[2022-03-31 22:15] VITALS: BP 112/73
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
[2022-04-01] MEDS: gabapentin 100mg capsule PO SCH (07:21)
[2022-04-01] MEDS: thiamine 100mg tablet PO SCH (07:21)
[2022-04-01] MEDS: LORazepam 1 MG tablet PO SCH (07:21)
[2022-04-01] MEDS: pantoprazole 40mg Tablet.DR PO SCH (07:21)
[2022-04-01] MEDS: venlafaxine 25mg tablet PO SCH (07:21)
[2022-04-01] MEDS: multivitamins, therapeutics tablet PO SCH (07:21)
[2022-04-01] MEDS: folic acid 1mg tablet PO SCH (07:21)
[2022-04-01 07:49] VITALS: BP 112/65
[2022-04-01] MEDS: nystatin 15 GM powder TP SCH (08:00)
[2022-04-01] MEDS ORDERED: GABA300C PO (10:17)
[2022-04-01] MEDS ORDERED: PANT40TA54 PO (10:17)
[2022-04-01] MEDS ORDERED: METH10SO PO (10:17)
[2022-04-01] MEDS ORDERED: CLON0.1T2 PO (10:17)
[2022-04-01] MEDS ORDERED: FOLI1TAB27 PO (10:17)
[2022-04-01] MEDS ORDERED: TRAZ-251 PO (10:17)
[2022-04-01] MEDS ORDERED: NYSPWD TP (10:17)
[2022-04-01] MEDS ORDERED: thiamine tablet PO (10:17)
[2022-04-01] MEDS ORDERED: ATI1T PO (10:17)
[2022-04-01] MEDS ORDERED: VENL75TA4 PO (10:17)
[2022-04-01] MEDS ORDERED: MULT-25 PO (10:17)
--- NOTE | 2022-04-01 10:33 | NUR ---
Discharge Presenting Issues: Pt's on Vol status and is scheduled to d/c this morning. Interventions: Clinician had t/c w/[facility] to finalize pt's dcp. Per t/c pt's PMD will provide post-hospital f/u & refill meds for pt as pt's psychiatric care post-hospital appointment is scheduled too far out. Clinician met w/pt and finalized dcp, pt reported that she had been in contact w/her counselor @ [facility] and will be scheduled to see her MAT provider this week. Pt received script for lower doses of Methadone to tie her over until she sees her MAT provider at the end of the week. Pt will contact her roommate to get ride home. Plan: Pt is discharging. Dione Wall LCSW Addendum: 04/01/22 at 1048 by Dione Wall SS Amended: Links added.
--- NOTE | 2022-04-01 11:20 | NUR ---
DISCHARGE NOTE: Pt. discharged to home, picked up by roommate. Pt. discharged with all belongings and valuables. RN went over discharge paper work with pt., pt. verbalized understanding and signed all paperwork including home medications, f/u plan, emergency phone numbers including 911. Pt. is A&Ox4 and denies SI/HI, A/V hallucinations. Pt. in no apparent distress. Pt. 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
== END 2022-04-01 11:20 | disposition home or self-care (01) | DRG 751 ==
LOC: ER 10:28 → ADULT MH 03-24 20:20
PROVIDERS: ADMIT Psychiatry & Neurology Psychiatry; ATTEND Psychiatry & Neurology Psychiatry
DX: F33.2 Major depressive disorder, recurrent severe without psychotic features (principal); R45.851 Suicidal ideations; E11.9 Type 2 diabetes mellitus without complications; E87.6 Hypokalemia; I10 Essential (primary) hypertension; Y90.3 Blood alcohol level of 60-79 mg/100 ml; F15.20 Other stimulant dependence, uncomplicated; F17.210 Nicotine dependence, cigarettes, uncomplicated; J44.9 Chronic obstructive pulmonary disease, unspecified; F41.9 Anxiety disorder, unspecified; Z20.822 Contact with and (suspected) exposure to COVID-19; K21.9 Gastro-esophageal reflux disease without esophagitis; Z62.810 Personal history of physical and sexual abuse in childhood; F11.20 Opioid dependence, uncomplicated; F10.20 Alcohol dependence, uncomplicated; Z63.8 Other specified problems related to primary support group; Z79.899 Other long term (current) drug therapy; Z85.118 Personal history of other malignant neoplasm of bronchus and lung; Z86.73 Personal history of transient ischemic attack (TIA), and cerebral infarction without residual deficits; Z91.52 Personal history of nonsuicidal self-harm; Z98.84 Bariatric surgery status; Z88.8 Allergy status to other drugs, medicaments and biological substances; Z90.49 Acquired absence of other specified parts of digestive tract; B19.20 Unspecified viral hepatitis C without hepatic coma; D51.0 Vitamin B12 deficiency anemia due to intrinsic factor deficiency
CPT/HCPCS: 36415; 80053; 80061; 80305; 80320; 80329; 83036; 84132; 84443; 85008; 85025; 87081; 93005; 96365; 96366; 96368; 99285; J3475; J3480; J7030

== ENCOUNTER 2022-04-04 07:37 | Emergency (ER) | payer MEDICAID ==
[~2022-04-04] VITALS: Ht 157.5 cm; Wt 95.5 kg
[~2022-04-04 07:37] MED LIST changes: -ALBU8.5H17 INH; +ATI1T PO; -BUDE180A INH; -CEPH-572 PO; +CLON0.1T2 PO; -DOL10T PO; +FOLI1TAB27 PO; -GABA-534 PO; +GABA300C PO; -LORA-269 PO; +METH10SO PO; +MULT-25 PO; -MYC15CR TOP; +NYSPWD TP; -ONDA4TAB12 PO; +PANT40TA54 PO; -PROC-8 PO; -QUET25TA36 PO; +TRAZ-251 PO; -VENL75CA61 PO; +VENL75TA4 PO; +thiamine tablet PO
[2022-04-04 07:45] VITALS: BP 119/93
[2022-04-04] MEDS ORDERED: DOXYCYCLINE 100MG CAPSULE PO ONE (11:05)
[2022-04-04] MEDS ORDERED: fluconazole 150mg tablet PO ONE (11:05)
[2022-04-04] MEDS ORDERED: DOXY100T67 PO (11:09)
[2022-04-04] MEDS ORDERED: FLUC150T PO (11:09)
[2022-04-04 11:41] LABS: CLARITY,URINE CLEAR (Clear); COLOR,URINE YELLOW (Yellow); GLUCOSE, URINE NEGATIVE (Neg); KETONES,URINE NEGATIVE (Neg); LEUKOCYTE ESTERASE ,URINE LARGE (Neg); NITRITES, URINE NEGATIVE (Neg); OCCULT BLOOD,URINE SMALL (Neg); PROTEIN,URINE NEGATIVE (Neg)
[2022-04-04 11:45] LABS: UA COLLECTION TYPE CLN CATCH MIDSTREAM
[2022-04-04 11:48] LABS: AMORPHOUS URATES 1+; BACTERIA,URINE FEW /HPF (Neg); MUCUS STRANDS FEW /LPF (Neg); RBC,URINE 0-2 /HPF (0-2); SQUAMOUS EPITHELIAL CELL,UR MANY /LPF (FEW); TRICHOMONAS,URINE FEW /HPF (NEGATIVE); WBC,URINE 0-4 /HPF (0-4)
[2022-04-04] MEDS ORDERED: CefTRIAXone 1000mg IM Kit (w/lidocaine diluent) IM ONE (13:00)
== END 2022-04-04 12:09 | disposition home or self-care (01) ==
LOC: ER 07:38
DX: T83.89XA Other specified complication of genitourinary prosthetic devices, implants and grafts, initial encounter (principal); D64.9 Anemia, unspecified; F31.9 Bipolar disorder, unspecified; F17.200 Nicotine dependence, unspecified, uncomplicated; Z88.8 Allergy status to other drugs, medicaments and biological substances; Z79.899 Other long term (current) drug therapy; Z88.6 Allergy status to analgesic agent
CPT/HCPCS: 36415; 81001; 86592; 87491; 87591; 96372; 99284; J0696

== ENCOUNTER 2022-06-11 07:35 | Emergency (ER) | payer MEDICAID ==
[~2022-06-11] VITALS: Ht 157.5 cm; Wt 90.9 kg
[2022-06-11] MEDS ORDERED: ondansetron/PF 4mg/2ml inj IV ONE (08:25)
[2022-06-11] MEDS ORDERED: normal saline 1000ML IV soln IVB ONE (08:25)
[2022-06-11 09:58] LABS: BASOPHILS % (AUTO) 0.6 % (0-1); EOSINOPHILS # (AUTO) 0.1 X10'3 (0-0.9); EOSINOPHILS % (AUTO) 1.5 % (0-6); HEMATOCRIT 43.2 % (35.0-45.0); HEMOGLOBIN 14.2 g/dl (12.0-16.0); LYMPHOCYTES # (AUTO) 0.8 X10'3 (1.1-4.8); LYMPHOCYTES % (AUTO) 21.5 % (21-51); MEAN CORPUSCULAR HEMOGLOBIN 30.9 PG (27.0-31.0); MEAN CORPUSCULAR HGB CONC 32.8 g/dL (33.0-36.5); MEAN CORPUSCULAR VOLUME 94.4 FL (78-98); MEAN PLATELET VOLUME 7.5 FL (7.4-10.4); MONOCYTES # (AUTO) 0.3 X10'3 (0-0.9); MONOCYTES % (AUTO) 8.1 % (2-12); NEUTROPHILS # (AUTO) 2.6 X10'3 (1.8-7.7); NEUTROPHILS % (AUTO) 68.3 % (42-75); PLATELET COUNT 136 X10'3 (140-440); RED BLOOD COUNT 4.58 X10'6 (4.20-5.60); RED CELL DISTRIBUTION WIDTH 20.2 % (11.5-14.5); WHITE BLOOD COUNT 3.8 X10'3 (4.5-11.0)
[2022-06-11 10:09] LABS: ALANINE AMINOTRANSFERASE 72 U/L (12-78); ALBUMIN 2.9 G/DL (3.4-5.0); ALBUMIN/GLOBULIN RATIO 0.6 (1.1-1.5); ALKALINE PHOSPHATASE 478 IU/L (46-116); ANION GAP 8 (8-16); ASPARTATE AMINO TRANSFERASE 140 U/L (10-37); BILIRUBIN,TOTAL 0.7 MG/DL (0.1-1.0); BLOOD UREA NITROGEN 2 MG/DL (7-18); BUN/CREATININE RATIO 2.8 (6.6-38.0); CHLORIDE 107 MMOL/L (99-107); CREATININE 0.71 MG/DL (0.40-0.90); GLUCOSE 82 MG/DL (70-104); POTASSIUM 3.6 MMOL/L (3.5-5.1); SODIUM 143 MMOL/L (135-145); TOTAL CARBON DIOXIDE 28.1 MMOL/L (24-32); TOTAL PROTEIN 7.5 G/DL (6.4-8.2); eGFR 89 ML/MIN
[2022-06-11] MEDS ORDERED: LIDOcaine Viscous 15ml cup TP ONE (10:20)
[2022-06-11] MEDS ORDERED: sucralfate 1 gm tablet PO ONE (10:20)
[2022-06-11] MEDS ORDERED: mag hydrox/Alum hydrox/simeth 30ml oral suspension PO ONE (10:20)
[2022-06-11 11:04] VITALS: BP 141/81
== END 2022-06-11 11:06 | disposition home or self-care (01) ==
LOC: ER 07:35
DX: K29.20 Alcoholic gastritis without bleeding (principal); R10.11 Right upper quadrant pain; R11.10 Vomiting, unspecified; R19.7 Diarrhea, unspecified; F41.9 Anxiety disorder, unspecified; F32.A Depression, unspecified; Z86.19 Personal history of other infectious and parasitic diseases; Z86.2 Personal history of diseases of the blood and blood-forming organs and certain disorders involving the immune mechanism; Z90.49 Acquired absence of other specified parts of digestive tract; Z98.890 Other specified postprocedural states; Z72.89 Other problems related to lifestyle; Z88.6 Allergy status to analgesic agent; Z88.8 Allergy status to other drugs, medicaments and biological substances; Z79.899 Other long term (current) drug therapy
CPT/HCPCS: 80053; 85025; 96374; 99284; J2405; J7030

== ENCOUNTER 2022-07-18 08:43 | Emergency (ER) | payer MEDICAID ==
[~2022-07-18] VITALS: Ht 157.5 cm; Wt 86.0 kg
[2022-07-18 08:46] VITALS: BP 107/66
[2022-07-18 09:49] LABS: HEMOGLOBIN 12.1 g/dl (12.0-16.0); NEUTROPHILS # (AUTO) 1.1 X10'3 (1.8-7.7); RED CELL DISTRIBUTION WIDTH 20.4 % (11.5-14.5); WHITE BLOOD COUNT 2.7 X10'3 (4.5-11.0)
[2022-07-18 09:51] LABS: BASOPHILS % (AUTO) 0.7 % (0-1); EOSINOPHILS # (AUTO) 0.1 X10'3 (0-0.9); EOSINOPHILS % (AUTO) 5.5 % (0-6); HEMATOCRIT 36.8 % (35.0-45.0); LYMPHOCYTES % (AUTO) 36.4 % (21-51); MEAN CORPUSCULAR HEMOGLOBIN 31.4 PG (27.0-31.0); MEAN CORPUSCULAR VOLUME 95.1 FL (78-98); MEAN PLATELET VOLUME 7.3 FL (7.4-10.4); MONOCYTES # (AUTO) 0.4 X10'3 (0-0.9); MONOCYTES % (AUTO) 14.7 % (2-12); NEUTROPHILS % (AUTO) 42.7 % (42-75); PLATELET COUNT 118 X10'3 (140-440); RED BLOOD COUNT 3.87 X10'6 (4.20-5.60)
[2022-07-18 10:04] LABS: ANISOCYTOSIS 3+; PLATELET ESTIMATE DECREASED; TOTAL CELLS COUNTED 100
[2022-07-18 10:19] LABS: ALANINE AMINOTRANSFERASE 39 U/L (12-78); ALBUMIN 2.9 G/DL (3.4-5.0); ALBUMIN/GLOBULIN RATIO 0.8 (1.1-1.5); ALKALINE PHOSPHATASE 324 IU/L (46-116); ANION GAP 8 (8-16); ASPARTATE AMINO TRANSFERASE 40 U/L (10-37); BILIRUBIN,TOTAL 0.3 MG/DL (0.1-1.0); BLOOD UREA NITROGEN 6 MG/DL (7-18); BUN/CREATININE RATIO 8.2 (6.6-38.0); CALCIUM 8.6 MG/DL (8.5-10.1); CHLORIDE 107 MMOL/L (99-107); CREATININE 0.73 MG/DL (0.40-0.90); GLUCOSE 81 MG/DL (70-104); POTASSIUM 3.5 MMOL/L (3.5-5.1); SODIUM 143 MMOL/L (135-145); TOTAL CARBON DIOXIDE 27.9 MMOL/L (24-32); TOTAL PROTEIN 6.5 G/DL (6.4-8.2); eGFR 86 ML/MIN
[2022-07-18] MEDS ORDERED: HYDROcodone/acetaminophen 5mg/325mg tablet PO ONE (10:30)
[2022-07-18 11:20] LABS: CLARITY,URINE SLIGHTLY CLOUDY (Clear); GLUCOSE, URINE NEGATIVE (Neg); KETONES,URINE NEGATIVE (Neg); LEUKOCYTE ESTERASE ,URINE MODERATE (Neg); NITRITES, URINE NEGATIVE (Neg); OCCULT BLOOD,URINE LARGE (Neg); PH,URINE 5.5 (4.8-8.0); PROTEIN,URINE NEGATIVE (Neg)
[2022-07-18 11:23] LABS: COLOR,URINE STRAW (Yellow); UA COLLECTION TYPE CLN CATCH MIDSTREAM
[2022-07-18 11:28] LABS: AMORPHOUS URATES 2+; BACTERIA,URINE NONE SEEN /HPF (Neg); MUCUS STRANDS NONE SEEN /LPF (Neg); RBC,URINE 0-2 /HPF (0-2); SQUAMOUS EPITHELIAL CELL,UR MANY /LPF (FEW); WBC,URINE 0-4 /HPF (0-4)
== END 2022-07-18 11:25 | disposition home or self-care (01) ==
LOC: ER 08:44
DX: T81.9XXA Unspecified complication of procedure, initial encounter (principal); R10.9 Unspecified abdominal pain; R50.9 Fever, unspecified; F41.9 Anxiety disorder, unspecified; D64.9 Anemia, unspecified; F32.A Depression, unspecified; Z90.49 Acquired absence of other specified parts of digestive tract; Z98.890 Other specified postprocedural states; Z88.8 Allergy status to other drugs, medicaments and biological substances; Z88.6 Allergy status to analgesic agent; Z79.899 Other long term (current) drug therapy
CPT/HCPCS: 76830; 76856; 80053; 81001; 85007; 85025; 99284

== ENCOUNTER 2022-11-11 18:36 | Emergency (ER) | payer MEDICAID ==
[~2022-11-11] VITALS: Ht 157.5 cm; Wt 94.5 kg
--- NOTE | 2022-11-11 20:31 | NUR ---
present in room for exam with james joyner.
[2022-11-11] MEDS ORDERED: ondansetron 4mg rapidly disintigrating tab PO ONE (20:35)
[2022-11-11] MEDS: morphine 4 MG/ML inj SYRINge IM ONE ×2 (21:06→21:14)
[2022-11-11] MEDS ORDERED: diphenhydrAMINE 25mg capsule PO ONE (21:10)
[2022-11-11 22:46] VITALS: BP 118/59
== END 2022-11-11 23:20 | disposition home or self-care (01) ==
LOC: ER 18:37
DX: R07.81 Pleurodynia (principal); M25.551 Pain in right hip; R07.89 Other chest pain; F31.9 Bipolar disorder, unspecified; Z88.8 Allergy status to other drugs, medicaments and biological substances; Z88.6 Allergy status to analgesic agent; Z90.49 Acquired absence of other specified parts of digestive tract; Z98.890 Other specified postprocedural states; Z79.899 Other long term (current) drug therapy; W19.XXXA Unspecified fall, initial encounter; Y93.89 Activity, other specified; Y92.89 Other specified places as the place of occurrence of the external cause; Y99.8 Other external cause status
CPT/HCPCS: 71101; 73502; 96372; 99284; J2270; Q0163

== ENCOUNTER 2024-05-08 16:29 | Inpatient (IN) | payer MEDICAID ==
[~2024-05-08] VITALS: Ht 157.5 cm; Wt 93.4 kg
[~2024-05-08 16:29] MED LIST changes: -ATI1T PO; +CHOL100046 PO; +CYAN500T71 PO; -FOLI1TAB27 PO; +GABA-530 PO; +GABA-535 PO; -GABA300C PO; +HALO5TAB PO; +HYDR-3686 PO; -METH10SO PO; +MIRT-88 PO; +OSC500T PO; -PANT40TA54 PO; -TRAZ-251 PO; +VENL100T4 PO; -VENL75TA4 PO; -thiamine tablet PO
[2024-05-08 18:16] LABS: BASOPHILS % (AUTO) 0.9 % (0-1); EOSINOPHILS % (AUTO) 1.2 % (0-6); HEMATOCRIT 37.1 % (35.0-45.0); HEMOGLOBIN 12.4 g/dl (12.0-16.0); LYMPHOCYTES # (AUTO) 1.1 X10'3 (1.1-4.8); MEAN CORPUSCULAR HEMOGLOBIN 34.6 PG (27.0-31.0); MEAN CORPUSCULAR HGB CONC 33.3 g/dL (33.0-36.5); MEAN CORPUSCULAR VOLUME 103.8 FL (78-98); MEAN PLATELET VOLUME 7.8 FL (7.4-10.4); MONOCYTES # (AUTO) 0.3 X10'3 (0-0.9); MONOCYTES % (AUTO) 9.4 % (2-12); NEUTROPHILS # (AUTO) 2.1 X10'3 (1.8-7.7); NEUTROPHILS % (AUTO) 57.5 % (42-75); PLATELET COUNT 129 X10'3 (140-440); RED BLOOD COUNT 3.57 X10'6 (4.20-5.60); RED CELL DISTRIBUTION WIDTH 22.6 % (11.5-14.5); WHITE BLOOD COUNT 3.7 X10'3 (4.5-11.0)
[2024-05-08 18:25] LABS: CLARITY,URINE CLEAR (Clear)
[2024-05-08 18:27] LABS: URINE HCG NEGATIVE (NEG)
[2024-05-08 18:28] LABS: URINE AMPHETAMINE SCREEN NEGATIVE (Neg); URINE BARBITUATE SCREEN NEGATIVE (Neg); URINE BENZODIAZEPINES SCREEN NEGATIVE (Neg); URINE CANNABINOID SCREEN NEGATIVE (Neg); URINE COCAINE SCREEN NEGATIVE (Neg); URINE METHADONE SCREEN POSITIVE (Neg); URINE OPIATE SCREEN NEGATIVE (Neg); URINE PHENCYCLIDINE SCREEN NEGATIVE (Neg)
[2024-05-08 18:42] LABS: ALBUMIN 2.5 G/DL (3.4-5.0); ANION GAP 8 (8-16); BLOOD UREA NITROGEN 6 MG/DL (7-18); BUN/CREATININE RATIO 8.7 (10.0-20.0); CALCIUM 8.2 MG/DL (8.5-10.1); CHLORIDE 97 MMOL/L (99-107); CREATININE 0.69 MG/DL (0.40-0.90); ETHANOL 94 MG/DL (<10); GLUCOSE 94 MG/DL (70-104); POTASSIUM 3.8 MMOL/L (3.5-5.1); SODIUM 132 MMOL/L (135-145); THYROID STIMULATING HORMONE 4.19 ulU/ml (0.34-4.50); TOTAL CARBON DIOXIDE 27.5 MMOL/L (24-32); eCRCL 79 ML/MIN; eGFR > 90 ML/MIN
[2024-05-08 18:44] LABS: COLOR,URINE ORANGE (Yellow); UA COLLECTION TYPE VOIDED
[2024-05-08 18:47] LABS: SQUAMOUS EPITHELIAL CELL,UR FEW /LPF (FEW); STARCH,URINE FEW /HPF (NEGATIVE)
[2024-05-08 18:48] LABS: BACTERIA,URINE FEW /HPF (Neg); RBC,URINE 0-2 /HPF (0-2); WBC,URINE 0-4 /HPF (0-4)
[2024-05-08 18:53] LABS: ANISOCYTOSIS 3+; PLATELET ESTIMATE DECREASED; STOMATOCYTES FEW
[2024-05-08] MEDS: LORazepam 1 MG tablet PO PRN (19:59)
[2024-05-09] MEDS ORDERED: CLON0.1T2 PO (10:31)
[2024-05-09] MEDS ORDERED: MIRT-142 PO (10:31)
[2024-05-09] MEDS ORDERED: HALO5TAB PO (10:31)
[2024-05-09] MEDS ORDERED: GABA800T11 PO (10:31)
[2024-05-09] MEDS ORDERED: HYDR-3686 PO (10:31)
[2024-05-09] MEDS ORDERED: VENL25TA48 PO (10:31)
[2024-05-09] MEDS ORDERED: hydrOXYzine 25 MG tablet PO PRN (10:50)
[2024-05-09] MEDS ORDERED: METH-603 PO (12:13)
[2024-05-09] MEDS: gabapentin 400mg capsule PO SCH (12:43)
[2024-05-09] MEDS: methadone 10mg tablet PO ONE (16:05)
[2024-05-09 19:33] VITALS: BP 100/69; PULSE 102; RESP 18; TEMP 97.8; O2SAT 95
[2024-05-09 19:58] VITALS: RESP 18; O2SAT 95
[2024-05-09] MEDS: hydrOXYzine 25 MG tablet PO SCH (20:34)
[2024-05-09] MEDS: mirtazapine 15mg tablet PO SCH (20:34)
[2024-05-09] MEDS: venlafaxine 25mg tablet PO SCH (20:34)
[2024-05-09] MEDS: nystatin 15 GM powder TP SCH (21:36)
[2024-05-10] MEDS: haloperidol 5mg tablet PO PRN (01:42)
[2024-05-10 07:15] VITALS: BP 112/70; PULSE 95; RESP 15; TEMP 98; O2SAT 94
[2024-05-10] MEDS: methadone 10mg tablet PO SCH (08:43)
[2024-05-10 08:47] VITALS: RESP 15; O2SAT 94
[2024-05-10 19:00] VITALS: RESP 16; O2SAT 95
[2024-05-10 19:30] VITALS: BP 127/88; PULSE 112; RESP 16; TEMP 97; O2SAT 95
[2024-05-11 07:30] VITALS: BP 125/80; PULSE 103; RESP 16; TEMP 98.4; O2SAT 92
[2024-05-11] MEDS: cloNIDine 0.1 mg tablet PO PRN (10:59)
[2024-05-11 15:52] LABS: BILIRUBIN,URINE SMALL (Neg); CLARITY,URINE CLOUDY (Clear); COLOR,URINE YELLOW (Yellow); GLUCOSE, URINE NEGATIVE (Neg); KETONES,URINE NEGATIVE (Neg); LEUKOCYTE ESTERASE ,URINE NEGATIVE (Neg); OCCULT BLOOD,URINE NEGATIVE (Neg); PROTEIN,URINE NEGATIVE (Neg); UROBILINOGEN,URINE >=8.0 E.U/dL (0.2-1.0)
[2024-05-11 15:56] LABS: UA COLLECTION TYPE NON-SPECIFIED
[2024-05-11 15:57] LABS: NITRITES, URINE NEGATIVE (Neg)
[2024-05-11 15:59] LABS: BACTERIA,URINE FEW /HPF (Neg); MUCUS STRANDS FEW /LPF (Neg); RBC,URINE 0-2 /HPF (0-2); SQUAMOUS EPITHELIAL CELL,UR FEW /LPF (FEW); WBC,URINE 0-4 /HPF (0-4)
[2024-05-11 19:00] VITALS: RESP 18; O2SAT 96
[2024-05-11 20:00] VITALS: BP 109/70; PULSE 102; RESP 16; TEMP 98; O2SAT 97
[2024-05-12 07:00] VITALS: RESP 16; O2SAT 97
[2024-05-12 07:30] VITALS: BP 105/70; PULSE 83; RESP 16; TEMP 97.3; O2SAT 97
[2024-05-12] MEDS: aripiprazole 5mg tablet PO SCH (08:05)
[2024-05-12 11:10] VITALS: BP 103/74; PULSE 91
[2024-05-12] MEDS: magnesium hydroxide 30ml (MOM) UD suspension PO PRN (11:27)
[2024-05-12 19:00] VITALS: RESP 18; O2SAT 92
[2024-05-12 20:08] VITALS: BP 92/57; PULSE 62; RESP 18; TEMP 97.2; O2SAT 92
[2024-05-13 07:00] VITALS: RESP 16; O2SAT 100
[2024-05-13 07:30] VITALS: BP 121/79; PULSE 89; RESP 16; TEMP 97.3; O2SAT 100
[2024-05-13 15:30] VITALS: BP 119/82; PULSE 88; RESP 15; TEMP 97.7; O2SAT 94
[2024-05-13] MEDS ORDERED: mag hydrox/Alum hydrox/simeth 30ml oral suspension PO PRN (17:20)
[2024-05-13] MEDS ORDERED: loperamide 2mg capsule PO PRN (17:20)
[2024-05-13] MEDS ORDERED: acetaminophen 325mg tablet PO PRN (17:20)
[2024-05-13 19:00] VITALS: BP 103/78; PULSE 85; RESP 16; TEMP 97.1; O2SAT 95
[2024-05-14 07:00] VITALS: RESP 18; O2SAT 97
[2024-05-14] MEDS: aripiprazole 5mg tablet PO SCH (07:39)
[2024-05-14] MEDS: hydrOXYzine 25 MG tablet PO SCH (07:40)
[2024-05-14 08:00] VITALS: BP 105/81; PULSE 67; RESP 18; TEMP 98.6; O2SAT 97
[2024-05-14 18:54] VITALS: RESP 16
[2024-05-14 19:04] VITALS: BP 112/78; PULSE 84; RESP 16; TEMP 97.8; O2SAT 94
[2024-05-14] MEDS: traZODone 50mg tablet PO SCH (20:23)
[2024-05-15 07:00] VITALS: BP 86/52; PULSE 84; RESP 16; TEMP 97.3; O2SAT 95
[2024-05-15 08:15] VITALS: BP 99/55; PULSE 98
[2024-05-15] MEDS: hydrOXYzine 25 MG tablet PO SCH (16:57)
[2024-05-15 18:49] VITALS: RESP 18; O2SAT 97
[2024-05-15 19:26] VITALS: BP 113/74; PULSE 94; RESP 18; TEMP 98.1; O2SAT 97
[2024-05-15] MEDS: bisacodyl 5mg tablet.DR PO PRN (20:13)
[2024-05-15] MEDS: acetaminophen 325mg tablet PO PRN (20:15)
[2024-05-15] MEDS ORDERED: LORazepam 2 mg/ml vial IM SCH (21:00)
[2024-05-16 07:00] VITALS: BP 114/74; PULSE 83; RESP 16; TEMP 97.4; O2SAT 93
[2024-05-16] MEDS: magnesium citrate 296ml oral solution PO ONE (07:56)
[2024-05-16] MEDS: bisacodyl 10mg suppository rectal RC PRN (07:59)
[2024-05-16] MEDS: ondansetron 4mg rapidly disintigrating tab PO PRN (07:59)
[2024-05-16 14:45] VITALS: BP 95/68; PULSE 85
[2024-05-16 19:20] VITALS: RESP 16; O2SAT 97
[2024-05-16 19:21] VITALS: BP 101/72; PULSE 90; RESP 16; TEMP 97.3; O2SAT 90
[2024-05-16] MEDS: busPIRone 5mg tablet PO SCH (20:01)
[2024-05-16] MEDS: gabapentin 300mg capsule PO SCH (20:01)
[2024-05-17 07:58] VITALS: BP 98/57; PULSE 85; RESP 14; TEMP 97.5; O2SAT 92
[2024-05-17 12:34] VITALS: RESP 14; O2SAT 92
[2024-05-17 19:00] VITALS: RESP 16; O2SAT 96
[2024-05-17 19:55] VITALS: BP 100/73; PULSE 71; RESP 16; TEMP 97.2; O2SAT 96
[2024-05-18 07:00] VITALS: RESP 14; O2SAT 92
[2024-05-18 07:30] VITALS: BP 97/63; PULSE 80; RESP 16; TEMP 97.2; O2SAT 93
[2024-05-18 19:00] VITALS: RESP 16; O2SAT 96
[2024-05-18 19:53] VITALS: BP 117/83; PULSE 89; RESP 16; TEMP 96.9; O2SAT 96
[2024-05-19 07:00] VITALS: RESP 14; O2SAT 92
[2024-05-19 07:30] VITALS: BP 91/53; PULSE 86; RESP 14; TEMP 97.9; O2SAT 92
[2024-05-19] MEDS ORDERED: HYDR-3686 PO (11:36)
[2024-05-19] MEDS ORDERED: BUSP5TAB26 PO (11:36)
[2024-05-19] MEDS ORDERED: TRAZ-251 PO (11:36)
[2024-05-19] MEDS ORDERED: gabapentin capsule PO (11:36)
[2024-05-19] MEDS ORDERED: BISA-77 PO (11:36)
[2024-05-19] MEDS ORDERED: CLON0.1T2 PO (11:36)
[2024-05-19] MEDS ORDERED: VENL25TA48 PO (11:36)
[2024-05-19] MEDS ORDERED: ARIP5TAB31 PO (11:36)
[2024-05-19] MEDS ORDERED: HALO5TAB PO (11:36)
[2024-05-19 12:50] VITALS: BP 112/69; PULSE 95; O2SAT 94
[2024-05-19 15:30] VITALS: BP 110/70; PULSE 81
[2024-05-19 19:00] VITALS: RESP 16; O2SAT 96
[2024-05-19 19:18] VITALS: BP 107/73; PULSE 82; RESP 16; TEMP 97.8; O2SAT 96
[2024-05-19] MEDS: busPIRone 5mg tablet PO SCH (21:17)
[2024-05-19] MEDS: traZODone 50mg tablet PO SCH (21:19)
[2024-05-20 07:00] VITALS: RESP 16
[2024-05-20 08:00] VITALS: BP 87/47; PULSE 86; RESP 16; TEMP 97.2; O2SAT 90
[2024-05-20 08:10] VITALS: BP 117/72; PULSE 102; O2SAT 94
[2024-05-20] MEDS: ringers solution, lacted 1,000 ML IV ONE (15:13)
[2024-05-20 15:48] LABS: BASOPHILS % (AUTO) 0.6 % (0-1); EOSINOPHILS # (AUTO) 0.1 X10'3 (0-0.9); EOSINOPHILS % (AUTO) 1.6 % (0-6); HEMATOCRIT 37.5 % (35.0-45.0); HEMOGLOBIN 12.2 g/dl (12.0-16.0); LYMPHOCYTES # (AUTO) 0.9 X10'3 (1.1-4.8); LYMPHOCYTES % (AUTO) 21.6 % (21-51); MEAN CORPUSCULAR HEMOGLOBIN 34.2 PG (27.0-31.0); MEAN CORPUSCULAR HGB CONC 32.6 g/dL (33.0-36.5); MEAN CORPUSCULAR VOLUME 104.7 FL (78-98); MONOCYTES # (AUTO) 0.3 X10'3 (0-0.9); MONOCYTES % (AUTO) 7.9 % (2-12); NEUTROPHILS # (AUTO) 2.8 X10'3 (1.8-7.7); NEUTROPHILS % (AUTO) 68.3 % (42-75); PLATELET COUNT 156 X10'3 (140-440); RED BLOOD COUNT 3.58 X10'6 (4.20-5.60); RED CELL DISTRIBUTION WIDTH 20.8 % (11.5-14.5); WHITE BLOOD COUNT 4.1 X10'3 (4.5-11.0)
[2024-05-20 16:04] LABS: PLATELET ESTIMATE NORMAL
[2024-05-20 16:05] LABS: ANISOCYTOSIS 3+; STOMATOCYTES FEW; TEAR DROP CELLS FEW
[2024-05-20 16:11] LABS: ALANINE AMINOTRANSFERASE 59 U/L (12-78); ALBUMIN 2.3 G/DL (3.4-5.0); ALBUMIN/GLOBULIN RATIO 0.6 (1.1-1.5); ALKALINE PHOSPHATASE 201 IU/L (46-116); ANION GAP 3 (8-16); ASPARTATE AMINO TRANSFERASE 101 U/L (10-37); BILIRUBIN,TOTAL 0.8 MG/DL (0.1-1.0); BLOOD UREA NITROGEN 10 MG/DL (7-18); BUN/CREATININE RATIO 12.7 (10.0-20.0); CALCIUM 8.6 MG/DL (8.5-10.1); CHLORIDE 104 MMOL/L (99-107); CREATININE 0.79 MG/DL (0.40-0.90); GLUCOSE 92 MG/DL (70-104); POTASSIUM 4.3 MMOL/L (3.5-5.1); SODIUM 140 MMOL/L (135-145); TOTAL CARBON DIOXIDE 33.4 MMOL/L (24-32); TOTAL PROTEIN 6.3 G/DL (6.4-8.2); eCRCL 69 ML/MIN; eGFR 78 ML/MIN
[2024-05-20 16:47] LABS: THYROID STIMULATING HORMONE 2.89 ulU/ml (0.34-4.50)
[2024-05-20] MEDS: cyanocobalamin 1,000 mcg/ml inj IM ONE (17:40)
[2024-05-20 19:00] VITALS: BP 113/70; PULSE 86; RESP 18; TEMP 98.8; O2SAT 93; O2SAT 97
[2024-05-21 07:00] VITALS: RESP 15; O2SAT 93
[2024-05-21 07:30] VITALS: BP 102/66; PULSE 78; RESP 15; TEMP 98.2; O2SAT 93
[2024-05-21 19:00] VITALS: RESP 16; O2SAT 94
[2024-05-21 20:00] VITALS: BP 114/78; PULSE 87; RESP 14; TEMP 96.9; O2SAT 93
[2024-05-22 07:01] VITALS: BP 101/67; PULSE 80; RESP 16; TEMP 97.9; O2SAT 94
[2024-05-22 08:29] VITALS: RESP 16; O2SAT 94
== END 2024-05-22 15:35 | disposition home or self-care (01) | DRG 751 ==
LOC: ER 16:30 → ED HOLD 05-09 13:30 → ADULT MH 05-09 17:38
PROVIDERS: ADMIT Psychiatry & Neurology Psychiatry; ATTEND Psychiatry & Neurology Psychiatry
PROC: GZHZZZZ Group Psychotherapy (ICD-10-PCS; principal; 2024-05-10)
PROC: GZ51ZZZ Individual Psychotherapy, Behavioral (ICD-10-PCS; 2024-05-10)
DX: F33.1 Major depressive disorder, recurrent, moderate (principal); D69.6 Thrombocytopenia, unspecified; R45.851 Suicidal ideations; E88.09 Other disorders of plasma-protein metabolism, not elsewhere classified; E86.1 Hypovolemia; E66.9 Obesity, unspecified; Z20.822 Contact with and (suspected) exposure to COVID-19; F17.210 Nicotine dependence, cigarettes, uncomplicated; F41.9 Anxiety disorder, unspecified; Z68.38 Body mass index [BMI] 38.0-38.9, adult; Z80.1 Family history of malignant neoplasm of trachea, bronchus and lung; Z82.3 Family history of stroke; Z83.3 Family history of diabetes mellitus; Z85.118 Personal history of other malignant neoplasm of bronchus and lung; Z86.73 Personal history of transient ischemic attack (TIA), and cerebral infarction without residual deficits; Z90.710 Acquired absence of both cervix and uterus; Z88.8 Allergy status to other drugs, medicaments and biological substances
CPT/HCPCS: 36415; 71045; 71250; 80048; 80053; 80305; 80320; 81001; 81025; 84443; 85008; 85025; 87081; 87811; 99285; A6250; C2617; J3420; J7120; Q0177

== ENCOUNTER 2024-05-24 18:42 | Emergency (ER) | payer MEDICAID ==
[~2024-05-24] VITALS: Ht 157.5 cm; Wt 92.3 kg
[~2024-05-24 18:42] MED LIST changes: +ARIP5TAB31 PO; +BISA-77 PO; +BUSP5TAB26 PO; -CHOL100046 PO; -CYAN500T71 PO; -GABA-530 PO; -GABA-535 PO; +METH-603 PO; -MIRT-88 PO; -MULT-25 PO; -NYSPWD TP; -OSC500T PO; +TRAZ-251 PO; -VENL100T4 PO; +VENL25TA48 PO; +gabapentin capsule PO
[2024-05-25] MEDS: acetaminophen 325mg tablet PO ONE (00:27)
[2024-05-25 00:41] VITALS: BP 132/74; PULSE 68; RESP 16; TEMP 98.3; O2SAT 97
== END 2024-05-25 00:43 | disposition home or self-care (01) ==
LOC: ER 18:42
DX: S80.212A Abrasion, left knee, initial encounter (principal); F41.9 Anxiety disorder, unspecified; F32.A Depression, unspecified; Z88.8 Allergy status to other drugs, medicaments and biological substances; Z88.6 Allergy status to analgesic agent; Z79.899 Other long term (current) drug therapy; Z90.49 Acquired absence of other specified parts of digestive tract; X58.XXXA Exposure to other specified factors, initial encounter; Y93.89 Activity, other specified; Y92.89 Other specified places as the place of occurrence of the external cause; Y99.8 Other external cause status
CPT/HCPCS: 73564; 99285

== ENCOUNTER 2025-05-09 15:26 | Emergency (ER) | payer MEDICAID ==
[~2025-05-09] VITALS: Ht 157.5 cm; Wt 97.2 kg
[~2025-05-09 15:26] MED LIST changes: -ARIP5TAB31 PO; +ARIP5TAB53 PO
[2025-05-09 15:27] VITALS: RESP 16; TEMP 98
--- NOTE | 2025-05-09 16:17 | RADIOLOGY REPORT ---
CLINICAL INDICATION: LEFT FOOT PAIN TECHNIQUE: DI FOOT, COMPLETE (3VW MIN) Comparison: None FINDINGS/IMPRESSION: : There is no evidence of acute fracture or dislocation. Soft tissues are unremarkable.
[2025-05-09 18:15] VITALS: BP 118/68; PULSE 63; O2SAT 98
[2025-05-09] MEDS ORDERED: IBUP-864 PO (18:33)
--- NOTE | 2025-05-09 18:33 | Physician Documentation ---
History of Present Illness ~ Chief Complaint: Foot pain Stated Complaint: FALL/FOOT PAIN Time Seen by MD: 17:43 Primary Medical Doctor: ANGY MCKEE Source: patient Mode of Arrival: POV Exam Limitations: no limitations HPI 50-year-old female with left ankle pain after slipping on 1 of the stairs and twisting her ankle foot when she was taking her dog out late at night. Patient is still able to walk on ankle but does have some pain. Minimal swelling. No other associated symptoms Tetanus witin 5 years: Yes Medication Reconciliation Allergies: Coded Allergies: metoclopramide (Verified Adverse Reaction, Intermediate, "MAKES ME CRAZY MAKES MY SKIN CRAWL", 05/09/25) NSAIDS (Non-Steroidal Anti-Inflamma (Verified Adverse Reaction, Unknown, GASTRIC BYPASS, 05/09/25) WAS ADVISED NOT TO TAKE AFTER GASTRIC BYPASS SURGERY Scheduled Aripiprazole (Aripiprazole), 2.5 MG PO DAILY Buspirone Hcl (Buspirone Hcl), 10 MG PO TID Hydroxyzine Hcl* (Atarax*), 75 MG PO QID Ibuprofen (Ibu), 1 TAB PO Q8H Methadone Hcl* (Dolophine*), 105 MG PO DAILY, (Reported) Trazodone HCl (Trazodone HCl), 100 MG PO HSMR1 Venlafaxine Hcl* (Effexor*), 4 TAB PO BID [gabapentin capsule], 600 MG PO TID Scheduled PRN Bisacodyl (Bisacodyl), 10 MG PO DAILY@21 PRN for constipation Clonidine HCl (Clonidine HCl), 1 TAB PO BID PRN for anxiety Haloperidol (Haloperidol), 5 MG PO BID PRN for AGITATION/SLEEP Past Medical History Past Medical History: Hepatitis C, Anemia, *RENAL/*, Anxiety, Depression Past Surgical History: cholecystectomy, gastric bypass, hysterectomy, other Other Past Surgical History: surgical ablation Patient History: (CVA) Cerebrovascular accident FATHER, Not a twin FH: diabetes mellitus Maternal grandmother FH: lung cancer FATHER, Not a twin FHx: alcohol abuse FATHER, Not a twin MOTHER (19 attempts of suicide), , Age: 50's - 60, Cause: Depressed FHx: bipolar disorder MOTHER (19 attempts of suicide), , Age: 50's - 60, Cause: Depressed Alcohol Use: Heavy Drug Use: heroin Lives with: S/O Lives In: Home Review of Systems All Other Systems at this time: Reviewed and Negative Musculoskeletal: Reports: see HPI Physical Exam Vital Signs: RN Vital Signs have been reviewed: Yes, Temperature: 98.0, Source: Temporal, Heart Rate: 63, Respiratory Rate: 16, BP: 118/68, Pulse Oximetry: 98, Weight: 97.200 Oxygen Flow Rate: 0 Physical Exam General: Alert, no apparent distress. Respiratory: Lungs clear, no respiratory distress. Chest: No accessory muscle use. Cardiovascular: Regular rate and rhythm, no murmurs. Extremities: He has range of motion of left ankle foot due to pain no obvious ecchymosis or swelling pain to the lower lateral malleolus and dorsal aspect of the foot no deformities good pulses movement of all toes sensation intact Neurologic: Oriented x4. Psychiatric: Normal mood and affect. Skin: Normal color, warm and dry. No edema, no ecchymosis. Progress Results/Orders Results/Orders Orders - KELLEN FELIZ GLASS [facility] GAUGER Ortho Orders (05/09/25 ) Vital Signs 05/09/25 05/09/25 15:27 18:15 Temp 98.0 Pulse 80 63 Resp 16 B/P (MAP) 105/63 118/68 (85) Pulse Ox 96 98 O2 Flow Rate 0 EKG/XRAY/CT/US/VASC/MRI Bone/Soft Tissue X-Ray (Ext.) : Additional Comment CLINICAL INDICATION: LEFT FOOT PAIN TECHNIQUE: DI FOOT, COMPLETE (3VW MIN) Comparison: None FINDINGS/IMPRESSION: : There is no evidence of acute fracture or dislocation. Soft tissues are unremarkable. Medical Decision Making Findings That is where she just slipped on the edge of the stair while walking her dog outside to go to the bathroom. X-ray was unremarkable for any acute findings no objective findings suggestive of fracture likely sprain as a differential. Discussed rice therapy and follow up Ankle Diff Dx:Considerations: Include: Contusion, Fracture-metatarsal, Fracture-fibula, Fracture-tarsal, Fracture-tibia, Sprain Foot Diff Dx:Considerations: Include: Abrasion, Arthritis, Cellulitis, Contusion, Dislocation, Fracture-metatarsal, Fracture-phalynx, Fracture-tarsal Departure Time of Disposition: 18:32 Disposition: 01 HOME / SELF CARE / HOMELESS Impression: Primary Impression: Sprain of foot Condition: Stable Discharge Instructions: Sprains Additional Instructions: Ice, rest ice compress and elevate. Sprains can take 4-6 weeks to feel better. Follow up with primary care in a week take ibuprofen as prescribed Referrals: NO PRIMARY CARE PROVIDER (PCP) Prescriptions Ibuprofen (Ibu) 800 Mg Tablet 1 TAB PO Q8H for 7 Days, #21 TAB 0 Refills Prov: KELLEN FELIZ NP 05/09/25 Education Educated: Patient Educated regarding: diagnosis, treatment, need for follow up Signature Scribe Signature: No scribe Attestation: The note accurately reflects work and decisions made by me.Kellen CRESPO 05/09/25 18:45 KELLEN FELIZ NP May 09, 2025 18:33
== END 2025-05-09 18:56 | disposition home or self-care (01) ==
LOC: ER 15:26
DX: S93.602A Unspecified sprain of left foot, initial encounter (principal); F32.A Depression, unspecified; F41.9 Anxiety disorder, unspecified; Z88.6 Allergy status to analgesic agent; Z90.49 Acquired absence of other specified parts of digestive tract; Z90.710 Acquired absence of both cervix and uterus; Z98.84 Bariatric surgery status; X50.1XXA Overexertion from prolonged static or awkward postures, initial encounter; Y93.89 Activity, other specified; Y92.89 Other specified places as the place of occurrence of the external cause; Y99.8 Other external cause status
CPT/HCPCS: 29515; 73630; 99283